=== PATIENT | female | born 1945 | race Caucasian/White ===

== ENCOUNTER 2017-10-03 13:48 | Day surgery (SDC) | payer MEDICARE, OTHER ==
[2017-09-30 13:03] LABS: BASOPHILS # (AUTO) 0.1 X10'3 (0-0.2); BASOPHILS % (AUTO) 0.6 % (0-1); EOSINOPHILS # (AUTO) 0.4 X10'3 (0-0.9); EOSINOPHILS % (AUTO) 3.6 % (0-6); HEMATOCRIT 43.4 % (35.0-45.0); HEMOGLOBIN 14.8 g/dl (12.0-16.0); LYMPHOCYTES # (AUTO) 3.5 X10'3 (1.1-4.8); LYMPHOCYTES % (AUTO) 33.9 % (21-51); MEAN CORPUSCULAR HEMOGLOBIN 30.3 PG (27.0-31.0); MEAN CORPUSCULAR HGB CONC 34.1 % (33.0-36.5); MEAN CORPUSCULAR VOLUME 88.8 FL (78-98); MEAN PLATELET VOLUME 8.3 FL (7.4-10.4); MONOCYTES # (AUTO) 0.8 X10'3 (0-0.9); MONOCYTES % (AUTO) 7.6 % (2-12); NEUTROPHILS # (AUTO) 5.7 X10'3 (1.8-7.7); NEUTROPHILS % (AUTO) 54.3 % (42-75); PLATELET COUNT 226 X10'3 (140-440); RED BLOOD COUNT 4.89 X10'6 (4.20-5.60); RED CELL DISTRIBUTION WIDTH 13.9 % (11.5-14.5); WHITE BLOOD COUNT 10.4 X10'3 (4.5-11.0)
[2017-09-30 13:12] LABS: ALBUMIN 3.7 G/DL (3.4-5.0); ANION GAP 9 (8-16); BLOOD UREA NITROGEN 14 MG/DL (7-18); BUN/CREATININE RATIO 16.7 (6.6-38.0); CALCIUM 9.3 MG/DL (8.5-10.1); CHLORIDE 103 MMOL/L (99-107); CREATININE 0.84 MG/DL (0.40-0.90); GLUCOSE 99 MG/DL (70-104); POTASSIUM 3.8 MMOL/L (3.5-5.1); SODIUM 141 MMOL/L (135-145); TOTAL CARBON DIOXIDE 28.8 MMOL/L (24-32); eGFR 67 ML/MIN
[2017-09-30 13:13] LABS: PARTIAL THROMBOPLASTIN TIME 27 SECONDS (22-32); PROTHROMBIN TIME 10.1 SECONDS (9.0-12.0)
[2017-10-03] VITALS (8 sets, daily range): BP systolic 144–163; BP diastolic 52–64
[~2017-10-03] VITALS: Ht 160 cm; Wt 91.9 kg
[~2017-10-03 13:48] MED LIST: AMLO5TAB4 PO; ASPI81TA52 PO; ATOR40TA71 PO; BUPR100T6 PO; CLOP75TA15 PO; DIPH25CA83 PO; HYDR25TA4 PO; IBUP-24 PO; LOSA100T3 PO; METF500T PO; METO100T14 PO; POTASSIUM PO; PRED20TA PO; RANI150T44 PO
[2017-10-03] MEDS ORDERED: LORazepam 0.5 MG tablet PO PRN (15:05)
[2017-10-03] MEDS ORDERED: diphenhydrAMINE 25mg capsule PO PRN (15:05)
[2017-10-03] MEDS ORDERED: normal saline 1000ml 1,000 ML IV SCH (15:05)
[2017-10-03] MEDS ORDERED: iohexol 350MG/ML 100ml bottle IV ONE (16:30)
[2017-10-03] MEDS ORDERED: LIDOcaine 1% 30ml preserv. free vial ONE (16:31)
[2017-10-03] MEDS ORDERED: midazolam 2 mg/2 ml injection ONE (17:07)
[2017-10-03] MEDS ORDERED: iohexol 350 MG/ML 50ML vial IV ONE (17:26)
[2017-10-03] MEDS ORDERED: OXAZEpam 15mg capsule PO PRN (18:10)
[2017-10-03] MEDS ORDERED: ondansetron/PF 4mg/2ml inj IV PRN (18:10)
[2017-10-03] MEDS ORDERED: proCHLORperazine 10 MG/2 ml inj IV PRN (18:10)
[2017-10-03] MEDS ORDERED: HYDROcodone/acetaminophen 10/325mg tab PO PRN (18:10)
[2017-10-03] MEDS ORDERED: HYDROcodone/acetaminophen 5mg/325mg tablet PO PRN (18:10)
== END 2017-10-03 20:30 | disposition home or self-care (01) ==
LOC: SSTAY O 13:48
PROVIDERS: ATTEND Internal Medicine Interventional Cardiology
DX: I25.10 Atherosclerotic heart disease of native coronary artery without angina pectoris (principal); I10 Essential (primary) hypertension; E78.5 Hyperlipidemia, unspecified; I35.0 Nonrheumatic aortic (valve) stenosis; F17.210 Nicotine dependence, cigarettes, uncomplicated; I70.219 Atherosclerosis of native arteries of extremities with intermittent claudication, unspecified extremity; I65.23 Occlusion and stenosis of bilateral carotid arteries; E11.59 Type 2 diabetes mellitus with other circulatory complications; K21.9 Gastro-esophageal reflux disease without esophagitis; J44.9 Chronic obstructive pulmonary disease, unspecified; F32.9 Major depressive disorder, single episode, unspecified; F41.8 Other specified anxiety disorders; Z90.49 Acquired absence of other specified parts of digestive tract; Z95.5 Presence of coronary angioplasty implant and graft; Z98.51 Tubal ligation status; Z79.01 Long term (current) use of anticoagulants; Z88.3 Allergy status to other anti-infective agents; Z91.041 Radiographic dye allergy status; Z88.1 Allergy status to other antibiotic agents; Z86.79 Personal history of other diseases of the circulatory system; Z79.82 Long term (current) use of aspirin; Z79.84 Long term (current) use of oral hypoglycemic drugs; Z98.890 Other specified postprocedural states; Z79.899 Other long term (current) drug therapy; Z88.8 Allergy status to other drugs, medicaments and biological substances
CPT/HCPCS: 36415; 80048; 82948; 85025; 85610; 85730; 93005; 93458; 93567; 99152; 99153; A6257; C1769; J1644; J2250; J3490; J7030; Q0163; Q9967; A4620

== ENCOUNTER 2017-10-08 18:44 | Inpatient (IN) | payer MEDICARE, OTHER ==
[~2017-10-08] VITALS: Ht 157.5 cm; Wt 102.3 kg
[~2017-10-08 18:44] MED LIST changes: -ATOR40TA71 PO; -IBUP-24 PO; -POTASSIUM PO
[2017-10-08 19:08] LABS: BASOPHILS # (AUTO) 0.2 X10'3 (0-0.2); BASOPHILS % (AUTO) 0.9 % (0-1); EOSINOPHILS # (AUTO) 0.4 X10'3 (0-0.9); EOSINOPHILS % (AUTO) 2.1 % (0-6); HEMATOCRIT 44.8 % (35.0-45.0); HEMOGLOBIN 15.3 g/dl (12.0-16.0); LYMPHOCYTES # (AUTO) 4.2 X10'3 (1.1-4.8); MEAN CORPUSCULAR HEMOGLOBIN 30.2 PG (27.0-31.0); MEAN CORPUSCULAR HGB CONC 34.2 % (33.0-36.5); MEAN CORPUSCULAR VOLUME 88.1 FL (78-98); MEAN PLATELET VOLUME 8.2 FL (7.4-10.4); NEUTROPHILS # (AUTO) 11.1 X10'3 (1.8-7.7); PLATELET COUNT 254 X10'3 (140-440); RED BLOOD COUNT 5.09 X10'6 (4.20-5.60); RED CELL DISTRIBUTION WIDTH 13.8 % (11.5-14.5); WHITE BLOOD COUNT 16.8 X10'3 (4.5-11.0)
[2017-10-08 19:18] LABS: INR 0.9 INR; PARTIAL THROMBOPLASTIN TIME 28 SECONDS (22-32); PROTHROMBIN TIME 9.8 SECONDS (9.0-12.0)
[2017-10-08 19:23] LABS: ALANINE AMINOTRANSFERASE 66 U/L (12-78); ALBUMIN 3.9 G/DL (3.4-5.0); ALBUMIN/GLOBULIN RATIO 1.1 (1.1-1.5); ALKALINE PHOSPHATASE 86 IU/L (46-116); ANION GAP 11 (8-16); ASPARTATE AMINO TRANSFERASE 22 U/L (10-37); BILIRUBIN,TOTAL 0.8 MG/DL (0.1-1.0); BLOOD UREA NITROGEN 17 MG/DL (7-18); CALCIUM 9.6 MG/DL (8.5-10.1); CHLORIDE 98 MMOL/L (99-107); GLUCOSE 194 MG/DL (70-104); POTASSIUM 3.7 MMOL/L (3.5-5.1); SODIUM 137 MMOL/L (135-145); TOTAL PROTEIN 7.6 G/DL (6.4-8.2); eGFR 55 ML/MIN
[2017-10-08] MEDS ORDERED: heparin 10,000 units/1 ML INJ IV ONE (19:40)
[2017-10-08] MEDS ORDERED: heparin 10,000 units/1 ML INJ IV PRN (19:40)
[2017-10-08] MEDS ORDERED: aspirin 81mg tab.chew PO ONE (19:40)
[2017-10-08] MEDS: heparin 25,000 UNIT/250ml bag 250 ML IV SCH (19:56)
[2017-10-08] MEDS ORDERED: morphine 4 MG/ML inj SYRINge IV ONE (20:00)
[2017-10-08] MEDS ORDERED: ondansetron/PF 4mg/2ml inj IV ONE (20:00)
[2017-10-08] MEDS: metoprolol tartrate 1mg/ml inj IV SCH ×14 (20:40→23:45)
[2017-10-08] MEDS ORDERED: ondansetron/PF 4mg/2ml inj IV PRN (20:50)
[2017-10-08] MEDS ORDERED: magnesium hydroxide 30ml (MOM) UD suspension PO PRN (20:50)
[2017-10-08] MEDS ORDERED: morphine 2 MG/ML inj. syringe IV PRN ×2 (20:50)
[2017-10-08] MEDS ORDERED: acetaminophen 325mg tablet PO PRN (20:50)
[2017-10-08] MEDS ORDERED: mag hydrox/Alum hydrox/simeth 30ml oral suspension PO PRN (20:50)
[2017-10-08] MEDS ORDERED: dextrose ORAL solution 15 GM/59 ML bottle PO PRN ×2 (20:55)
[2017-10-08] MEDS ORDERED: MESSAGE TO PHARMACY PO ONE (20:55)
[2017-10-08] MEDS ORDERED: metoprolol tartrate 1mg/ml inj IV PRN (20:55)
[2017-10-08] MEDS ORDERED: insulin Lispro (HumaLOG) vial - multi-dose SQ SCH (20:55)
[2017-10-08] MEDS ORDERED: dextrose 50%-water 50ml dispensing syringe IV PRN ×2 (20:55)
[2017-10-08] MEDS ORDERED: glucagon, human recombinant 1mg kit SUBCUT PRN (20:55)
[2017-10-08] MEDS: insulin glargine (Lantus) pen - multi-dose SQ SCH (21:00)
[2017-10-08 22:00] VITALS: BP 119/74
[2017-10-08 22:29] LABS: HEMOGLOBIN A1C 7.5 % (4.5-6.2)
[2017-10-09] MEDS ORDERED: albuterol 2.5 MG/3 ML nebule ONE
[2017-10-09] MEDS: metoprolol tartrate 1mg/ml inj IV SCH ×25 (00:15→06:00)
[2017-10-09 03:00] VITALS: BP 106/43
[2017-10-09 03:15] LABS: BASOPHILS % (AUTO) 0.4 % (0-1); EOSINOPHILS # (AUTO) 0.3 X10'3 (0-0.9); HEMATOCRIT 40.4 % (35.0-45.0); LYMPHOCYTES # (AUTO) 3.8 X10'3 (1.1-4.8); LYMPHOCYTES % (AUTO) 30.3 % (21-51); MEAN CORPUSCULAR HEMOGLOBIN 30.7 PG (27.0-31.0); MEAN CORPUSCULAR HGB CONC 34.6 % (33.0-36.5); MEAN CORPUSCULAR VOLUME 88.8 FL (78-98); MEAN PLATELET VOLUME 8.6 FL (7.4-10.4); MONOCYTES # (AUTO) 1.2 X10'3 (0-0.9); MONOCYTES % (AUTO) 9.6 % (2-12); NEUTROPHILS # (AUTO) 7.2 X10'3 (1.8-7.7); NEUTROPHILS % (AUTO) 57.7 % (42-75); PLATELET COUNT 211 X10'3 (140-440); RED BLOOD COUNT 4.56 X10'6 (4.20-5.60); RED CELL DISTRIBUTION WIDTH 14.1 % (11.5-14.5); WHITE BLOOD COUNT 12.5 X10'3 (4.5-11.0)
[2017-10-09 03:31] LABS: ALANINE AMINOTRANSFERASE 62 U/L (12-78); ALBUMIN 3.1 G/DL (3.4-5.0); ALKALINE PHOSPHATASE 67 IU/L (46-116); ANION GAP 5 (8-16); ASPARTATE AMINO TRANSFERASE 12 U/L (10-37); BILIRUBIN,TOTAL 0.5 MG/DL (0.1-1.0); BLOOD UREA NITROGEN 20 MG/DL (7-18); BUN/CREATININE RATIO 22.2 (6.6-38.0); CALCIUM 8.7 MG/DL (8.5-10.1); CHLORIDE 103 MMOL/L (99-107); GLUCOSE 182 MG/DL (70-104); POTASSIUM 3.3 MMOL/L (3.5-5.1); SODIUM 138 MMOL/L (135-145); TOTAL CARBON DIOXIDE 29.6 MMOL/L (24-32); TOTAL PROTEIN 6.2 G/DL (6.4-8.2); eGFR 62 ML/MIN
[2017-10-09] MEDS: heparin 25,000 UNIT/250ml bag 250 ML IV SCH ×3 (03:57→22:53)
[2017-10-09] MEDS ORDERED: potassium Cl 20 mEq SR tablet PO PRN ×2 (06:35)
[2017-10-09] MEDS ORDERED: magnesium 1gm/100ml D5W IVPB 100 ML IV PRN (06:35)
[2017-10-09] MEDS ORDERED: potassium Cl 40MEQ/NS 500ml 500 ML IV PRN ×2 (06:35)
[2017-10-09] MEDS ORDERED: magnesium 4gm in 100ml NS 100 ML IV PRN (06:35)
[2017-10-09] MEDS ORDERED: magnesium Cl slow-release 64mg tablet PO PRN (06:35)
[2017-10-09] MEDS ORDERED: morphine 4 MG/ML inj SYRINge IV PRN ×2 (06:48→06:49)
[2017-10-09 07:00] VITALS: BP 126/53
[2017-10-09] MEDS: buPROPion SR 100mg tab PO SCH ×2 (07:44→20:34)
[2017-10-09] MEDS: metoprolol tartrate 50mg tablet PO SCH ×2 (07:45→20:34)
[2017-10-09 07:46] LABS: MAGNESIUM 1.8 MG/DL (1.5-2.4)
[2017-10-09] MEDS ORDERED: losartan 50mg tablet PO SCH (08:00)
[2017-10-09] MEDS ORDERED: amLODIPine 5mg tablet PO SCH (08:00)
[2017-10-09] MEDS ORDERED: famotidine 20mg tablet PO SCH (08:00)
[2017-10-09] MEDS: diphenhydrAMINE 25mg capsule PO SCH ×2 (08:00→20:34)
[2017-10-09] MEDS ORDERED: aspirin 81mg tablet.DR PO SCH (08:00)
[2017-10-09 11:00] VITALS: BP 146/62
[2017-10-09] MEDS ORDERED: dextrose 50%-water 50ml dispensing syringe IV PRN (13:20)
[2017-10-09] MEDS ORDERED: MESSAGE TO NURSING PO ONE ×4 (13:20)
[2017-10-09 14:02] LABS: PARTIAL THROMBOPLASTIN TIME 49 SECONDS (22-32); PROTHROMBIN TIME 10.3 SECONDS (9.0-12.0)
[2017-10-09 14:06] LABS: ALANINE AMINOTRANSFERASE 57 U/L (12-78); ALBUMIN 3.2 G/DL (3.4-5.0); ALKALINE PHOSPHATASE 64 IU/L (46-116); ANION GAP 5 (8-16); ASPARTATE AMINO TRANSFERASE 23 U/L (10-37); BILIRUBIN,TOTAL 0.8 MG/DL (0.1-1.0); BLOOD UREA NITROGEN 16 MG/DL (7-18); BUN/CREATININE RATIO 19.3 (6.6-38.0); CALCIUM 9.2 MG/DL (8.5-10.1); CHLORIDE 101 MMOL/L (99-107); CREATININE 0.83 MG/DL (0.40-0.90); GLUCOSE 192 MG/DL (70-104); POTASSIUM 4.5 MMOL/L (3.5-5.1); SODIUM 137 MMOL/L (135-145); TOTAL CARBON DIOXIDE 30.6 MMOL/L (24-32); TOTAL PROTEIN 6.5 G/DL (6.4-8.2); eGFR 68 ML/MIN
[2017-10-09 15:00] VITALS: BP 127/48
[2017-10-09 16:51] LABS: ABG BASE EXCESS 0.7 mmol/L (-2.0-3.0); ABG HCO3 25.1 mmol/L (22.0-26.0); ABG OXYGEN SATURATION 95.1 % (95-98); ABG PCO2 (T) 39.4 mmHg (32.0-45.0); ABG PH (T) 7.422 (7.350-7.450); ABG PO2 (T) 76.4 mmHg (83-108); ALLEN'S TEST Positive; FCOHb 1.8 % (0.5-1.5); FO2Hb 93.4 % (94-100); TOTAL HEMOGLOBIN 14.4 G/dl (12.0-16.0)
[2017-10-09] MEDS ORDERED: insulin Lispro (HumaLOG) vial - multi-dose SQ SCH (18:00)
[2017-10-09 19:00] VITALS: BP 149/55
[2017-10-09] MEDS ORDERED: ringers solution, lacted 1,000 ML IV ONE (20:18)
[2017-10-09] MEDS: insulin glargine (Lantus) pen - multi-dose SQ SCH (21:00)
[2017-10-09 23:00] VITALS: BP 149/55
[2017-10-10] VITALS (14 sets, daily range): BP systolic 83–172; BP diastolic 48–69
[2017-10-10] MEDS: insulin regular, human inj. 100 UNITS in normal saline 100ml IV soln 100 ML IV SCH ×12 (05:30→23:15)
[2017-10-10] MEDS ORDERED: vancomycin/NS 1 GM ADD-VANTAGE 250 ML IV ONE (05:30)
[2017-10-10] MEDS ORDERED: cefazolin/dext.iso 2gm/50ml 50 ML IV ONE (05:30)
[2017-10-10] MEDS ORDERED: mupirocin 2% ointment 22GM NS SCH (05:30)
[2017-10-10 05:49] LABS: PRE OP PROTIME 10.3 SECONDS (9.0-12.0)
[2017-10-10] MEDS ORDERED: LORazepam 2 mg/ml vial IV ONE (06:00)
[2017-10-10] MEDS ORDERED: famotidine 20mg tablet PO ONE (06:00)
[2017-10-10 06:05] LABS: ALANINE AMINOTRANSFERASE 53 U/L (12-78); ALBUMIN 3.1 G/DL (3.4-5.0); ALKALINE PHOSPHATASE 59 IU/L (46-116); ANION GAP 5 (8-16); ASPARTATE AMINO TRANSFERASE 25 U/L (10-37); BILIRUBIN,TOTAL 0.6 MG/DL (0.1-1.0); BLOOD UREA NITROGEN 16 MG/DL (7-18); BUN/CREATININE RATIO 18.8 (6.6-38.0); CALCIUM 9.3 MG/DL (8.5-10.1); CHLORIDE 105 MMOL/L (99-107); CREATININE 0.85 MG/DL (0.40-0.90); GLUCOSE 174 MG/DL (70-104); MAGNESIUM 1.7 MG/DL (1.5-2.4); POTASSIUM 3.8 MMOL/L (3.5-5.1); SODIUM 137 MMOL/L (135-145); TOTAL PROTEIN 6.2 G/DL (6.4-8.2); eGFR 66 ML/MIN
[2017-10-10 06:07] LABS: BASOPHILS # (AUTO) 0.1 X10'3 (0-0.2); BASOPHILS % (AUTO) 0.5 % (0-1); EOSINOPHILS # (AUTO) 0.2 X10'3 (0-0.9); EOSINOPHILS % (AUTO) 2.4 % (0-6); HEMATOCRIT 38.8 % (35.0-45.0); HEMOGLOBIN 13.4 g/dl (12.0-16.0); LYMPHOCYTES # (AUTO) 2.5 X10'3 (1.1-4.8); LYMPHOCYTES % (AUTO) 26.6 % (21-51); MEAN CORPUSCULAR HEMOGLOBIN 30.7 PG (27.0-31.0); MEAN CORPUSCULAR HGB CONC 34.7 % (33.0-36.5); MEAN CORPUSCULAR VOLUME 88.4 FL (78-98); MEAN PLATELET VOLUME 9.3 FL (7.4-10.4); MONOCYTES % (AUTO) 10.3 % (2-12); NEUTROPHILS # (AUTO) 5.7 X10'3 (1.8-7.7); NEUTROPHILS % (AUTO) 60.2 % (42-75); PLATELET COUNT 193 X10'3 (140-440); RED BLOOD COUNT 4.38 X10'6 (4.20-5.60); RED CELL DISTRIBUTION WIDTH 13.8 % (11.5-14.5); WHITE BLOOD COUNT 9.5 X10'3 (4.5-11.0)
[2017-10-10] MEDS ORDERED: SUFENTANIL CITRATE 50 MCG/ML 2ml ampule IV ONE (07:22)
[2017-10-10] MEDS ORDERED: MIDAZolam 1mg/ml 10ml vial ONE (07:22)
[2017-10-10] MEDS ORDERED: LIDOcaine 2% (20mg/ml) 5ml vial ONE (07:23)
[2017-10-10] MEDS ORDERED: rocuronium 10mg/ml inj IV ONE ×2 (07:23)
[2017-10-10] MEDS ORDERED: etomidate 2mg/ml inj. ONE (07:23)
[2017-10-10] MEDS ORDERED: aminocaproic acid 250 MG/1 ML inj. ONE ×2 (07:25→09:00)
[2017-10-10] MEDS ORDERED: nitroGLYCERIN in D5W 50mg/250ml (Tridil) infusion IV ONE (07:25)
[2017-10-10] MEDS ORDERED: INSULIN R 100 UNIT in NS 100ML (1 UNIT/1 ML) BAG IV ONE (07:25)
[2017-10-10] MEDS ORDERED: DOPamine/D5W 400mg/250ml bag IV ONE (07:25)
[2017-10-10] MEDS ORDERED: isoflurane 100ml inhalation liquid IH ONE (07:25)
[2017-10-10] MEDS ORDERED: ceFAZolin 1000mg inj ONE ×2 (07:25→11:03)
[2017-10-10] MEDS ORDERED: heparin 10,000 units/1 ML INJ IR ONE (07:30)
[2017-10-10] MEDS ORDERED: papaverine 30 mg/ml 2ml inj. IA ONE (07:30)
[2017-10-10] MEDS: buPROPion SR 100mg tab PO SCH ×2 (08:00→19:44)
[2017-10-10 08:40] LABS: ABG BASE EXCESS -0.7 mmol/L (-2.0-3.0); ABG HCO3 21.9 mmol/L (22.0-26.0); ABG OXYGEN SATURATION 99.5 % (95-98); ABG PCO2 31.1 mmHg (35.0-45.0); ABG PH 7.466 (7.350-7.450); ABG PO2 462.7 mmHg (60.0-100.0); CL (ABG) 106 mmol/L (99-107); FCOHb 1.1 % (0.5-1.5); FMetHb 0.4 % (0.3-1.12); GLUCOSE (ABG) 169 mg/dl (70-105); IONIZED CA (ABG) 1.12 mmol/L (1.03-1.32); K (ABG) 3.6 mmol/L (3.3-5.1); NA (ABG) 131 mmol/L (135-145); TOTAL HEMOGLOBIN 15.7 G/dl (12.0-16.0)
[2017-10-10] MEDS ORDERED: sodium bicarbonate (8.4%) 1 mEq/ml syringe ONE (09:00)
[2017-10-10] MEDS ORDERED: methylPREDNISolone sod succ 1000mg vial ONE (09:00)
[2017-10-10] MEDS ORDERED: magnesium sulf 1 GM/2 ML ONE (09:00)
[2017-10-10] MEDS ORDERED: albumin (human) 25% 100 ML IV solution IV ONE (09:00)
[2017-10-10] MEDS ORDERED: heparin 1,000 units/ml 10ml inj ONE (09:00)
[2017-10-10] MEDS ORDERED: potassium Cl 2 mEq/ml inj IV ONE (09:00)
[2017-10-10] MEDS ORDERED: calcium chloride 100 MG/1 ML inj IV ONE (09:00)
[2017-10-10] MEDS ORDERED: phenylephrine 10mg/ml inj. ONE ×2 (09:00→10:42)
[2017-10-10] MEDS ORDERED: LIDOcaine 2% (20 mg/ml) 5ml cardiac syringe ONE (09:00)
[2017-10-10] MEDS ORDERED: heparin 10,000 units/1 ML INJ ONE ×2 (09:00→14:00)
[2017-10-10] MEDS ORDERED: ipratropium/albuterol 3ml nebule IH PRN (09:35)
[2017-10-10 09:36] LABS: ABG BASE EXCESS VENOUS 1.7 mmol/L; ABG HCO3 VENOUS 26.2 mmol/L; ABG PO2 VENOUS 52.1 mmHg; CL (ABG) 104 mmol/L (99-107); FCOHb VENOUS 0.9 %; FHHb VENOUS 12.5 %; FMetHb VENOUS 0.2 %; FO2Hb VENOUS 86.4 %; GLUCOSE (ABG) 129 mg/dl (70-105); K (ABG) 4.3 mmol/L (3.3-5.1); NA (ABG) 134 mmol/L (135-145); TOTAL HEMOGLOBIN 8.8 G/dl (12.0-16.0)
[2017-10-10] MEDS ORDERED: MESSAGE TO NURSING PO ONE (10:00)
[2017-10-10 10:10] LABS: ABG BASE EXCESS 0.8 mmol/L (-2.0-3.0); ABG HCO3 24.8 mmol/L (22.0-26.0); ABG OXYGEN SATURATION 99.4 % (95-98); ABG PCO2 36.9 mmHg (35.0-45.0); ABG PH 7.445 (7.350-7.450); ABG PO2 406.3 mmHg (60.0-100.0); CL (ABG) 106 mmol/L (99-107); FCOHb 0.6 % (0.5-1.5); FO2Hb 98.8 % (94-100); GLUCOSE (ABG) 127 mg/dl (70-105); IONIZED CA (ABG) 1.04 mmol/L (1.03-1.32); K (ABG) 4.4 mmol/L (3.3-5.1); NA (ABG) 132 mmol/L (135-145); TOTAL HEMOGLOBIN 9.5 G/dl (12.0-16.0)
[2017-10-10 10:36] LABS: ABG BASE EXCESS 0.4 mmol/L (-2.0-3.0); ABG HCO3 24.4 mmol/L (22.0-26.0); ABG PCO2 36.2 mmHg (35.0-45.0); ABG PH 7.446 (7.350-7.450); ABG PO2 331.9 mmHg (60.0-100.0); CL (ABG) 107 mmol/L (99-107); FCOHb 0.4 % (0.5-1.5); FMetHb 0.5 % (0.3-1.12); FO2Hb 98.1 % (94-100); GLUCOSE (ABG) 125 mg/dl (70-105); IONIZED CA (ABG) 1.02 mmol/L (1.03-1.32); K (ABG) 4.2 mmol/L (3.3-5.1); NA (ABG) 135 mmol/L (135-145); TOTAL HEMOGLOBIN 8.9 G/dl (12.0-16.0)
[2017-10-10] MEDS ORDERED: epiNEPHrine 1 mg/ml inj ONE (10:43)
[2017-10-10 11:20] LABS: ABG BASE EXCESS 1.6 mmol/L (-2.0-3.0); ABG HCO3 24.7 mmol/L (22.0-26.0); ABG OXYGEN SATURATION 99.2 % (95-98); ABG PCO2 31.9 mmHg (35.0-45.0); ABG PH 7.506 (7.350-7.450); ABG PO2 349.1 mmHg (60.0-100.0); CL (ABG) 105 mmol/L (99-107); FCOHb 0.9 % (0.5-1.5); FMetHb 0.6 % (0.3-1.12); FO2Hb 97.7 % (94-100); GLUCOSE (ABG) 123 mg/dl (70-105); IONIZED CA (ABG) 1.32 mmol/L (1.03-1.32); K (ABG) 4.5 mmol/L (3.3-5.1); NA (ABG) 133 mmol/L (135-145); TOTAL HEMOGLOBIN 7.7 G/dl (12.0-16.0)
[2017-10-10 12:01] LABS: ABG PCO2 VENOUS 43.4 mmHg; ABG PO2 VENOUS 43.1 mmHg; CL (ABG) 108 mmol/L (99-107); FCOHb VENOUS 0.8 %; FHHb VENOUS 22.7 %; FMetHb VENOUS 0.8 %; FO2Hb VENOUS 75.7 %; GLUCOSE (ABG) 137 mg/dl (70-105); K (ABG) 4.3 mmol/L (3.3-5.1); NA (ABG) 137 mmol/L (135-145); TOTAL HEMOGLOBIN 8.4 G/dl (12.0-16.0)
[2017-10-10] MEDS ORDERED: albumin (Human) 5% 250ml 250 ML IV ONE (12:38)
[2017-10-10] MEDS: amiodarone/D5 360MG/200ML BAG 200 ML IV SCH ×2 (12:50→23:54)
[2017-10-10] MEDS ORDERED: sodium phosphate inj. 30 MMOL in dextrose 5%-water 250 ML IV PRN (12:50)
[2017-10-10] MEDS ORDERED: normal saline 250ml IV soln 250 ML IV PRN (12:50)
[2017-10-10] MEDS ORDERED: sodium phosphate inj. 15 MMOL in dextrose 5%-water 150 ML IV PRN (12:50)
[2017-10-10] MEDS ORDERED: magnesium 4gm in 100ml NS 100 ML IV PRN (12:50)
[2017-10-10] MEDS ORDERED: dextrose 50%-water 50ml dispensing syringe IV PRN (12:50)
[2017-10-10] MEDS ORDERED: Neutra Phos packet PO PRN (12:50)
[2017-10-10] MEDS ORDERED: insulin regular, human inj. 100 UNITS in normal saline 100ml IV soln 100 ML IV SCH ×2 (12:50)
[2017-10-10] MEDS ORDERED: ondansetron/PF 4mg/2ml inj IV PRN (12:50)
[2017-10-10] MEDS ORDERED: DOPamine 400mg/D5W 250ml 250 ML IV PRN (12:50)
[2017-10-10] MEDS ORDERED: potassium Cl 20mEq/100mL bag 100 ML IV PRN ×2 (12:50)
[2017-10-10] MEDS ORDERED: morphine 4 MG/ML inj SYRINge IV PRN (12:50)
[2017-10-10] MEDS ORDERED: niCARDipine/sod cl 20mg/200ml 200 ML IV PRN (12:50)
[2017-10-10] MEDS ORDERED: magnesium hydroxide 30ml (MOM) UD suspension PO PRN (12:50)
[2017-10-10] MEDS ORDERED: nitroGLYCERIN-Tridil 50MG/D5W 250 ML IV PRN (12:50)
[2017-10-10] MEDS ORDERED: acetaminophen 325mg tablet PO PRN (12:50)
[2017-10-10] MEDS ORDERED: HYDROcodone/acetaminophen 10/325mg tab PO PRN (12:50)
[2017-10-10] MEDS: insulin Lispro (HumaLOG) vial - multi-dose SQ SCH ×4 (13:00→23:16)
[2017-10-10] MEDS ORDERED: papaverine 30 mg/ml 2ml inj. ONE (14:00)
[2017-10-10 14:06] LABS: ABG BASE EXCESS -3.9 mmol/L (-2.0-3.0); ABG HCO3 20.3 mmol/L (22.0-26.0); ABG OXYGEN SATURATION 98.6 % (95-98); ABG PCO2 (T) 32.7 mmHg (32.0-45.0); ABG PH (T) 7.407 (7.350-7.450); FCOHb 0.3 % (0.5-1.5); FMetHb 0.3 % (0.3-1.12); MINUTE VOLUME 8 L/min; PEEP 5 cm H2O; RESPIRATORY RATE 12 b/min; RESPIRATORY RATE (OBSERVED) 12 b/min; TIDAL VOLUME 600 mL; TOTAL HEMOGLOBIN 12.3 G/dl (12.0-16.0)
[2017-10-10 14:15] LABS: BASOPHILS % (AUTO) 0.1 % (0-1); EOSINOPHILS # (AUTO) 0.3 X10'3 (0-0.9); EOSINOPHILS % (AUTO) 1.9 % (0-6); HEMATOCRIT 33.6 % (35.0-45.0); HEMOGLOBIN 11.3 g/dl (12.0-16.0); LYMPHOCYTES # (AUTO) 1.5 X10'3 (1.1-4.8); LYMPHOCYTES % (AUTO) 8.9 % (21-51); MEAN CORPUSCULAR HEMOGLOBIN 30.5 PG (27.0-31.0); MEAN CORPUSCULAR HGB CONC 33.7 % (33.0-36.5); MEAN CORPUSCULAR VOLUME 90.4 FL (78-98); MEAN PLATELET VOLUME 8.5 FL (7.4-10.4); MONOCYTES # (AUTO) 0.6 X10'3 (0-0.9); MONOCYTES % (AUTO) 3.7 % (2-12); NEUTROPHILS # (AUTO) 14.3 X10'3 (1.8-7.7); NEUTROPHILS % (AUTO) 85.4 % (42-75); PLATELET COUNT 127 X10'3 (140-440); RED BLOOD COUNT 3.72 X10'6 (4.20-5.60); RED CELL DISTRIBUTION WIDTH 13.8 % (11.5-14.5); WHITE BLOOD COUNT 16.8 X10'3 (4.5-11.0)
[2017-10-10] MEDS: albumin (Human) 5% 250ml 250 ML IV PRN ×2 (14:21→15:31)
[2017-10-10 14:27] LABS: INR 1.2 INR; PARTIAL THROMBOPLASTIN TIME 34 SECONDS (22-32)
[2017-10-10 14:30] LABS: ALANINE AMINOTRANSFERASE 43 U/L (12-78); ALBUMIN 2.8 G/DL (3.4-5.0); ALBUMIN/GLOBULIN RATIO 1.5 (1.1-1.5); ALKALINE PHOSPHATASE 30 IU/L (46-116); ANION GAP 10 (8-16); ASPARTATE AMINO TRANSFERASE 46 U/L (10-37); BILIRUBIN,TOTAL 0.8 MG/DL (0.1-1.0); BLOOD UREA NITROGEN 13 MG/DL (7-18); BUN/CREATININE RATIO 12.9 (6.6-38.0); CALCIUM 8.3 MG/DL (8.5-10.1); CHLORIDE 111 MMOL/L (99-107); CREATININE 1.01 MG/DL (0.40-0.90); GLUCOSE 131 MG/DL (70-104); MAGNESIUM 2.7 MG/DL (1.5-2.4); PHOSPHORUS 1.4 MG/DL (2.3-4.5); SODIUM 146 MMOL/L (135-145); TOTAL CARBON DIOXIDE 24.6 MMOL/L (24-32); TOTAL PROTEIN 4.7 G/DL (6.4-8.2); eGFR 54 ML/MIN
[2017-10-10 14:31] LABS: POTASSIUM 3.5 MMOL/L (3.5-5.1)
[2017-10-10] MEDS: morphine 4 MG/ML inj SYRINge IV PRN (15:30)
[2017-10-10] MEDS: sodium chloride 0.45% 1,000 ML IV SCH (15:33)
[2017-10-10] MEDS: ceFAZolin 1GM/D5W- ADD-VANTAGE 50 ML IV SCH (15:41)
[2017-10-10] MEDS: potassium Cl 20mEq/100mL bag 100 ML IV PRN (15:42)
[2017-10-10] MEDS ORDERED: morphine 2 MG/ML inj. syringe ONE ×2 (16:12→16:49)
[2017-10-10] MEDS ORDERED: propofol 1000mg/100ml bottle 100 ML IV ONE (16:18)
[2017-10-10] MEDS ORDERED: propofol 1000mg/100ml bottle 100 ML IV PRN (18:57)
[2017-10-10 19:16] LABS: BASOPHILS % (AUTO) 0 % (0-1); EOSINOPHILS # (AUTO) 0.1 X10'3 (0-0.9); EOSINOPHILS % (AUTO) 1.1 % (0-6); HEMATOCRIT 29.7 % (35.0-45.0); HEMOGLOBIN 10.2 g/dl (12.0-16.0); LYMPHOCYTES # (AUTO) 0.8 X10'3 (1.1-4.8); LYMPHOCYTES % (AUTO) 6.3 % (21-51); MEAN CORPUSCULAR HEMOGLOBIN 30.8 PG (27.0-31.0); MEAN CORPUSCULAR HGB CONC 34.4 % (33.0-36.5); MEAN CORPUSCULAR VOLUME 89.5 FL (78-98); MONOCYTES # (AUTO) 0.6 X10'3 (0-0.9); MONOCYTES % (AUTO) 4.5 % (2-12); NEUTROPHILS # (AUTO) 11.3 X10'3 (1.8-7.7); NEUTROPHILS % (AUTO) 88.1 % (42-75); PLATELET COUNT 94 X10'3 (140-440); RED BLOOD COUNT 3.32 X10'6 (4.20-5.60); RED CELL DISTRIBUTION WIDTH 14.4 % (11.5-14.5); WHITE BLOOD COUNT 12.9 X10'3 (4.5-11.0)
[2017-10-10 19:31] LABS: ALBUMIN 3.2 G/DL (3.4-5.0); ANION GAP 8 (8-16); BLOOD UREA NITROGEN 14 MG/DL (7-18); BUN/CREATININE RATIO 16.9 (6.6-38.0); CALCIUM 7.8 MG/DL (8.5-10.1); CHLORIDE 110 MMOL/L (99-107); CREATININE 0.83 MG/DL (0.40-0.90); GLUCOSE 258 MG/DL (70-104); SODIUM 143 MMOL/L (135-145); TOTAL CARBON DIOXIDE 25.1 MMOL/L (24-32); TRIGLYCERIDES 137 MG/DL (20-135); eGFR 68 ML/MIN
[2017-10-10] MEDS: mupirocin 2% nasal ointment 1gm UD NS SCH (19:44)
[2017-10-10] MEDS: vancomycin/NS 1 GM ADD-VANTAGE 250 ML IV SCH (19:45)
[2017-10-10] MEDS: docusate sod 100mg capsule PO SCH (19:45)
[2017-10-11] VITALS (22 sets, daily range): BP systolic 78–142; BP diastolic 34–60
[2017-10-11] MEDS: insulin regular, human inj. 100 UNITS in normal saline 100ml IV soln 100 ML IV SCH ×20 (00:08→23:19)
[2017-10-11] MEDS: amiodarone/D5 360MG/200ML BAG 200 ML IV SCH (00:58)
[2017-10-11] MEDS: ceFAZolin 1GM/D5W- ADD-VANTAGE 50 ML IV SCH ×3 (01:11→16:37)
[2017-10-11 02:34] LABS: BASOPHILS % (AUTO) 0.1 % (0-1); EOSINOPHILS # (AUTO) 0.2 X10'3 (0-0.9); EOSINOPHILS % (AUTO) 1.2 % (0-6); HEMOGLOBIN 9.6 g/dl (12.0-16.0); LYMPHOCYTES # (AUTO) 1.4 X10'3 (1.1-4.8); LYMPHOCYTES % (AUTO) 9.8 % (21-51); MEAN CORPUSCULAR HEMOGLOBIN 30.8 PG (27.0-31.0); MEAN CORPUSCULAR HGB CONC 34.1 % (33.0-36.5); MEAN CORPUSCULAR VOLUME 90.4 FL (78-98); MEAN PLATELET VOLUME 9.2 FL (7.4-10.4); MONOCYTES # (AUTO) 0.6 X10'3 (0-0.9); MONOCYTES % (AUTO) 4.2 % (2-12); NEUTROPHILS # (AUTO) 11.7 X10'3 (1.8-7.7); NEUTROPHILS % (AUTO) 84.7 % (42-75); PLATELET COUNT 89 X10'3 (140-440); RED CELL DISTRIBUTION WIDTH 14.3 % (11.5-14.5); WHITE BLOOD COUNT 13.9 X10'3 (4.5-11.0)
[2017-10-11 02:49] LABS: ALANINE AMINOTRANSFERASE 33 U/L (12-78); ALBUMIN 2.8 G/DL (3.4-5.0); ALBUMIN/GLOBULIN RATIO 1.6 (1.1-1.5); ALKALINE PHOSPHATASE 23 IU/L (46-116); ANION GAP 12 (8-16); ASPARTATE AMINO TRANSFERASE 47 U/L (10-37); BILIRUBIN,TOTAL 0.3 MG/DL (0.1-1.0); BLOOD UREA NITROGEN 13 MG/DL (7-18); BUN/CREATININE RATIO 13.7 (6.6-38.0); CALCIUM 7.3 MG/DL (8.5-10.1); CHLORIDE 111 MMOL/L (99-107); CREATININE 0.95 MG/DL (0.40-0.90); GLUCOSE 193 MG/DL (70-104); MAGNESIUM 1.7 MG/DL (1.5-2.4); PHOSPHORUS 3.5 MG/DL (2.3-4.5); POTASSIUM 3.3 MMOL/L (3.5-5.1); SODIUM 145 MMOL/L (135-145); TOTAL CARBON DIOXIDE 21.7 MMOL/L (24-32); TOTAL PROTEIN 4.6 G/DL (6.4-8.2); eGFR 58 ML/MIN
[2017-10-11] MEDS: potassium Cl 20mEq/100mL bag 100 ML IV PRN ×4 (03:05→06:13)
[2017-10-11 03:11] LABS: INR 1.1 INR; PARTIAL THROMBOPLASTIN TIME 33 SECONDS (22-32); PROTHROMBIN TIME 11.4 SECONDS (9.0-12.0)
[2017-10-11 03:26] LABS: ABG BASE EXCESS -7.5 mmol/L (-2.0-3.0); ABG HCO3 16.5 mmol/L (22.0-26.0); ABG OXYGEN SATURATION 92.6 % (95-98); ABG PCO2 (T) 28.6 mmHg (32.0-45.0); ABG PH (T) 7.379 (7.350-7.450); ABG PO2 (T) 72.2 mmHg (83-108); FCOHb 0.3 % (0.5-1.5); FMetHb 0.3 % (0.3-1.12); MINUTE VOLUME 8 L/min; PATIENT TEMPERATURE 36.9; PEEP 5 cm H2O; RESPIRATORY RATE 12 b/min; RESPIRATORY RATE (OBSERVED) 15 b/min; TIDAL VOLUME 600 mL; TOTAL HEMOGLOBIN 10.3 G/dl (12.0-16.0)
[2017-10-11] MEDS: morphine 4 MG/ML inj SYRINge IV PRN ×7 (04:18→22:43)
[2017-10-11 05:11] LABS: ACTIVATED CLOTTING TIME 115 SEC (101-148)
[2017-10-11 05:11] LABS: ACT @ 1.70 U 281 SEC (193-297); ACT @ 2.84 U 382 SEC (260-420); BASELINE ACT 148 SEC (101-148); PATIENT WEIGHT 90.0k KG
[2017-10-11] MEDS: magnesium 1gm/100ml D5W IVPB 100 ML IV PRN ×2 (05:12→05:43)
[2017-10-11] MEDS: PROPOFOL 1000 MG/100 ML IV PRN ×2 (05:22→06:16)
[2017-10-11 05:34] LABS: ABG BASE EXCESS 1.2 mmol/L (-2.0-3.0); ABG HCO3 24.8 mmol/L (22.0-26.0); ABG OXYGEN SATURATION 99.5 % (95-98); ABG PCO2 35.2 mmHg (35.0-45.0); ABG PH 7.466 (7.350-7.450); ABG PO2 > 601.0 mmHg (60.0-100.0); CL (ABG) 104 mmol/L (99-107); FCOHb 0.7 % (0.5-1.5); FMetHb 0.3 % (0.3-1.12); FO2Hb 98.5 % (94-100); GLUCOSE (ABG) 125 mg/dl (70-105); IONIZED CA (ABG) 0.97 mmol/L (1.03-1.32); K (ABG) 4.5 mmol/L (3.3-5.1); NA (ABG) 132 mmol/L (135-145); TOTAL HEMOGLOBIN 8.5 G/dl (12.0-16.0)
[2017-10-11] MEDS: pantoprazole 40mg Tablet.DR PO SCH (07:30)
[2017-10-11] MEDS: buPROPion SR 100mg tab PO SCH ×2 (08:00→19:54)
[2017-10-11] MEDS: metoprolol tartrate 12.5mg (1/2 tablet) PO SCH ×2 (08:00→19:54)
[2017-10-11] MEDS ORDERED: aspirin 325mg tablet, delayed-release (Ecotrin) PO SCH (08:00)
[2017-10-11] MEDS: atorvastatin 10mg tablet PO SCH (08:00)
[2017-10-11] MEDS: docusate sod 100mg capsule PO SCH ×2 (08:00→19:54)
[2017-10-11 08:26] LABS: ABG BASE EXCESS -3.9 mmol/L (-2.0-3.0); ABG HCO3 20.9 mmol/L (22.0-26.0); ABG OXYGEN SATURATION 91.2 % (95-98); ABG PCO2 (T) 36.4 mmHg (32.0-45.0); ABG PH (T) 7.375 (7.350-7.450); ABG PO2 (T) 63.3 mmHg (83-108); FCOHb 0.3 % (0.5-1.5); FMetHb 0.2 % (0.3-1.12); FO2Hb 90.7 % (94-100); MINUTE VOLUME 7 L/min; PATIENT TEMPERATURE 36.6; PEEP 5 cm H2O; TIDAL VOLUME 388 mL
[2017-10-11] MEDS ORDERED: clopidogrel 300mg tablet PO ONE (08:35)
[2017-10-11] MEDS: dexmedetomidin/NS 400mcg/100ml 100 ML IV SCH ×2 (09:00→23:15)
[2017-10-11] MEDS: propofol inj 20 ML IV PRN (09:52)
[2017-10-11] MEDS: vancomycin/NS 1 GM ADD-VANTAGE 250 ML IV SCH ×2 (09:58→19:38)
[2017-10-11] MEDS ORDERED: propofol 1000mg/100ml bottle 100 ML IV PRN (10:01)
[2017-10-11] MEDS ORDERED: DOPamine 400mg/D5W 250ml 250 ML IV PRN (10:06)
[2017-10-11] MEDS ORDERED: niCARDipine/sod cl 20mg/200ml 200 ML IV PRN (10:08)
[2017-10-11] MEDS ORDERED: nitroGLYCERIN-Tridil 50MG/D5W 250 ML IV PRN (10:08)
[2017-10-11] MEDS ORDERED: morphine 2 MG/ML inj. syringe IV PRN (10:21)
[2017-10-11 13:56] LABS: ANION GAP 9 (8-16); BLOOD UREA NITROGEN 13 MG/DL (7-18); BUN/CREATININE RATIO 17.3 (6.6-38.0); CALCIUM 7.8 MG/DL (8.5-10.1); CHLORIDE 111 MMOL/L (99-107); CREATININE 0.75 MG/DL (0.40-0.90); GLUCOSE 92 MG/DL (70-104); MAGNESIUM 3.3 MG/DL (1.5-2.4); PHOSPHORUS 3.8 MG/DL (2.3-4.5); POTASSIUM 4.6 MMOL/L (3.5-5.1); SODIUM 142 MMOL/L (135-145); TOTAL CARBON DIOXIDE 21.8 MMOL/L (24-32); eGFR 76 ML/MIN
[2017-10-11] MEDS: mupirocin 2% nasal ointment 1gm UD NS SCH ×2 (16:38→19:56)
[2017-10-11] MEDS: insulin Lispro (HumaLOG) vial - multi-dose SQ SCH (18:00)
[2017-10-11] MEDS ORDERED: furosemide 40mg/4ml inj IV ONE (19:05)
[2017-10-12] VITALS (24 sets, daily range): BP systolic 100–193; BP diastolic 40–75
[2017-10-12] MEDS: ceFAZolin 1GM/D5W- ADD-VANTAGE 50 ML IV SCH (00:11)
[2017-10-12] MEDS: insulin regular, human inj. 100 UNITS in normal saline 100ml IV soln 100 ML IV SCH ×2 (01:20)
[2017-10-12 03:56] LABS: ALBUMIN 2.9 G/DL (3.4-5.0); ANION GAP 7 (8-16); BLOOD UREA NITROGEN 16 MG/DL (7-18); CALCIUM 7.8 MG/DL (8.5-10.1); CHLORIDE 111 MMOL/L (99-107); GLUCOSE 133 MG/DL (70-104); MAGNESIUM 2.4 MG/DL (1.5-2.4); PHOSPHORUS 3.7 MG/DL (2.3-4.5); POTASSIUM 4.5 MMOL/L (3.5-5.1); SODIUM 143 MMOL/L (135-145); eGFR 71 ML/MIN
[2017-10-12 03:57] LABS: BASOPHILS % (AUTO) 0.2 % (0-1); EOSINOPHILS # (AUTO) 0.2 X10'3 (0-0.9); EOSINOPHILS % (AUTO) 1.5 % (0-6); HEMATOCRIT 29.1 % (35.0-45.0); HEMOGLOBIN 9.8 g/dl (12.0-16.0); LYMPHOCYTES % (AUTO) 12.2 % (21-51); MEAN CORPUSCULAR HEMOGLOBIN 30.7 PG (27.0-31.0); MEAN CORPUSCULAR HGB CONC 33.8 % (33.0-36.5); MEAN CORPUSCULAR VOLUME 90.9 FL (78-98); MEAN PLATELET VOLUME 9.5 FL (7.4-10.4); MONOCYTES # (AUTO) 1.1 X10'3 (0-0.9); MONOCYTES % (AUTO) 6.8 % (2-12); NEUTROPHILS % (AUTO) 79.3 % (42-75); PLATELET COUNT 93 X10'3 (140-440); RED CELL DISTRIBUTION WIDTH 14.6 % (11.5-14.5); WHITE BLOOD COUNT 16.4 X10'3 (4.5-11.0)
[2017-10-12] MEDS: pantoprazole 40mg Tablet.DR PO SCH (07:30)
[2017-10-12] MEDS: metoprolol tartrate 25mg tablet PO SCH ×2 (08:39→20:51)
[2017-10-12] MEDS: docusate sod 100mg capsule PO SCH ×2 (08:40→20:51)
[2017-10-12] MEDS: buPROPion SR 100mg tab PO SCH ×2 (08:40→20:52)
[2017-10-12] MEDS: atorvastatin 10mg tablet PO SCH (08:40)
[2017-10-12] MEDS: ketorolac tromethamine 15mg/ml inj. IV PRN ×2 (08:56→16:00)
[2017-10-12] MEDS: mupirocin 2% nasal ointment 1gm UD NS SCH (08:57)
[2017-10-12] MEDS: clopidogrel 75mg tablet PO SCH (08:57)
[2017-10-12] MEDS: aspirin 81mg tablet.DR PO SCH (08:57)
[2017-10-12] MEDS: insulin Lispro (HumaLOG) vial - multi-dose SQ SCH ×3 (09:24→20:53)
[2017-10-12] MEDS: sodium chloride 0.45% 1,000 ML IV SCH (12:50)
[2017-10-12] MEDS: NUT.TX.GLUC.INTOLER,LAC-FR,SOY (GLUCERNA) 237 ML PO SCH ×2 (13:00→19:17)
[2017-10-12] MEDS ORDERED: metoclopramide 5 mg/ml inj IV PRN (15:40)
[2017-10-12] MEDS: metoclopramide 5 mg/ml inj IV PRN (15:59)
[2017-10-12] MEDS ORDERED: metoprolol tartrate 50mg tablet PO STA (18:25)
[2017-10-12] MEDS ORDERED: lisinopril 10 MG tablet PO ONE (18:25)
[2017-10-12] MEDS ORDERED: dextrose 50%-water 50ml dispensing syringe IV PRN ×2 (19:30)
[2017-10-12] MEDS ORDERED: dextrose ORAL solution 15 GM/59 ML bottle PO PRN ×2 (19:30)
[2017-10-12] MEDS ORDERED: glucagon, human recombinant 1mg kit SUBCUT PRN (19:30)
[2017-10-12] MEDS: insulin glargine (Lantus) pen - multi-dose SQ SCH (20:59)
[2017-10-12] MEDS ORDERED: metoprolol tartrate 50mg tablet PO ONE (22:00)
[2017-10-13] VITALS (24 sets, daily range): BP systolic 110–187; BP diastolic 44–92
[2017-10-13] MEDS: hydrALAZINE 20mg/ml inj. IV PRN ×2 (01:05→14:13)
[2017-10-13] MEDS: morphine 4 MG/ML inj SYRINge IV PRN (01:11)
[2017-10-13] MEDS: ketorolac tromethamine 15mg/ml inj. IV PRN (03:59)
[2017-10-13 05:59] LABS: BASOPHILS % (AUTO) 0 % (0-1); EOSINOPHILS # (AUTO) 0.2 X10'3 (0-0.9); HEMATOCRIT 31.7 % (35.0-45.0); HEMOGLOBIN 10.8 g/dl (12.0-16.0); LYMPHOCYTES # (AUTO) 2.2 X10'3 (1.1-4.8); LYMPHOCYTES % (AUTO) 10.5 % (21-51); MEAN CORPUSCULAR HEMOGLOBIN 30.9 PG (27.0-31.0); MEAN CORPUSCULAR HGB CONC 34.1 % (33.0-36.5); MEAN CORPUSCULAR VOLUME 90.5 FL (78-98); MEAN PLATELET VOLUME 9.4 FL (7.4-10.4); MONOCYTES # (AUTO) 1.4 X10'3 (0-0.9); MONOCYTES % (AUTO) 6.5 % (2-12); NEUTROPHILS # (AUTO) 17.2 X10'3 (1.8-7.7); PLATELET COUNT 142 X10'3 (140-440); RED BLOOD COUNT 3.51 X10'6 (4.20-5.60); RED CELL DISTRIBUTION WIDTH 14.8 % (11.5-14.5); WHITE BLOOD COUNT 20.9 X10'3 (4.5-11.0)
[2017-10-13] MEDS: metoclopramide 5 mg/ml inj IV PRN (06:12)
[2017-10-13 06:34] LABS: ANION GAP 10 (8-16); BLOOD UREA NITROGEN 29 MG/DL (7-18); BUN/CREATININE RATIO 38.7 (6.6-38.0); CALCIUM 8.6 MG/DL (8.5-10.1); CHLORIDE 106 MMOL/L (99-107); CREATININE 0.75 MG/DL (0.40-0.90); GLUCOSE 194 MG/DL (70-104); MAGNESIUM 2.4 MG/DL (1.5-2.4); PHOSPHORUS 3.1 MG/DL (2.3-4.5); POTASSIUM 4.7 MMOL/L (3.5-5.1); SODIUM 141 MMOL/L (135-145); TOTAL CARBON DIOXIDE 25.3 MMOL/L (24-32); eGFR 76 ML/MIN
[2017-10-13] MEDS: clopidogrel 75mg tablet PO SCH (07:57)
[2017-10-13] MEDS: metoprolol tartrate 25mg tablet PO SCH ×3 (07:57→19:35)
[2017-10-13] MEDS: buPROPion SR 100mg tab PO SCH ×2 (07:57→19:35)
[2017-10-13] MEDS: atorvastatin 10mg tablet PO SCH (07:57)
[2017-10-13] MEDS: docusate sod 100mg capsule PO SCH ×2 (07:57→19:34)
[2017-10-13] MEDS: pantoprazole 40mg Tablet.DR PO SCH (07:57)
[2017-10-13] MEDS: aspirin 81mg tablet.DR PO SCH (07:57)
[2017-10-13] MEDS: NUT.TX.GLUC.INTOLER,LAC-FR,SOY (GLUCERNA) 237 ML PO SCH (08:00)
[2017-10-13] MEDS: insulin Lispro (HumaLOG) vial - multi-dose SQ SCH ×3 (10:02→19:40)
[2017-10-13] MEDS: lisinopril 10 MG tablet PO SCH (10:06)
[2017-10-13] MEDS: lactose-reduced food (Ensure High Protein) 237ml bottle PO SCH (12:30)
[2017-10-13] MEDS: HYDROcodone/acetaminophen 10/325mg tab PO PRN (19:35)
[2017-10-13] MEDS: insulin glargine (Lantus) pen - multi-dose SQ SCH (21:03)
[2017-10-14] VITALS (24 sets, daily range): BP systolic 95–182; BP diastolic 44–73
[2017-10-14] MEDS: ketorolac tromethamine 15mg/ml inj. IV PRN (02:14)
[2017-10-14] MEDS: HYDROcodone/acetaminophen 10/325mg tab PO PRN (02:14)
[2017-10-14 05:31] LABS: BASOPHILS % (AUTO) 0.2 % (0-1); EOSINOPHILS % (AUTO) 0.1 % (0-6); HEMATOCRIT 31.1 % (35.0-45.0); HEMOGLOBIN 8.6 g/dl (12.0-16.0); LYMPHOCYTES # (AUTO) 3.3 X10'3 (1.1-4.8); LYMPHOCYTES % (AUTO) 17.4 % (21-51); MEAN CORPUSCULAR HEMOGLOBIN 25.1 PG (27.0-31.0); MEAN CORPUSCULAR HGB CONC 27.6 % (33.0-36.5); MEAN PLATELET VOLUME 8.6 FL (7.4-10.4); MONOCYTES # (AUTO) 1.2 X10'3 (0-0.9); MONOCYTES % (AUTO) 6.6 % (2-12); NEUTROPHILS # (AUTO) 14.3 X10'3 (1.8-7.7); NEUTROPHILS % (AUTO) 75.7 % (42-75); PLATELET COUNT 147 X10'3 (140-440); RED BLOOD COUNT 3.41 X10'6 (4.20-5.60); RED CELL DISTRIBUTION WIDTH 14.9 % (11.5-14.5); WHITE BLOOD COUNT 18.9 X10'3 (4.5-11.0)
[2017-10-14 06:10] LABS: ALBUMIN 2.7 G/DL (3.4-5.0); ANION GAP 4 (8-16); BLOOD UREA NITROGEN 38 MG/DL (7-18); BUN/CREATININE RATIO 46.3 (6.6-38.0); CALCIUM 8.4 MG/DL (8.5-10.1); CHLORIDE 107 MMOL/L (99-107); CREATININE 0.82 MG/DL (0.40-0.90); GLUCOSE 142 MG/DL (70-104); MAGNESIUM 2.2 MG/DL (1.5-2.4); PHOSPHORUS 3.3 MG/DL (2.3-4.5); POTASSIUM 4.7 MMOL/L (3.5-5.1); SODIUM 140 MMOL/L (135-145); TOTAL CARBON DIOXIDE 28.9 MMOL/L (24-32); eGFR 69 ML/MIN
[2017-10-14] MEDS: metoprolol tartrate 25mg tablet PO SCH ×2 (08:02→19:39)
[2017-10-14] MEDS: aspirin 81mg tablet.DR PO SCH (08:02)
[2017-10-14] MEDS: atorvastatin 10mg tablet PO SCH (08:03)
[2017-10-14] MEDS: docusate sod 100mg capsule PO SCH ×2 (08:03→19:40)
[2017-10-14] MEDS: lisinopril 10 MG tablet PO SCH (08:03)
[2017-10-14] MEDS: pantoprazole 40mg Tablet.DR PO SCH (08:03)
[2017-10-14] MEDS: buPROPion SR 100mg tab PO SCH ×2 (08:03→19:40)
[2017-10-14] MEDS: clopidogrel 75mg tablet PO SCH (08:03)
[2017-10-14] MEDS: lactose-reduced food (Ensure High Protein) 237ml bottle PO SCH ×2 (08:12→12:37)
[2017-10-14] MEDS ORDERED: amiodarone 150mg/dext, iso-os 100 ML IV ONE (08:30)
[2017-10-14] MEDS: amiodarone/D5 360MG/200ML BAG 200 ML IV SCH ×3 (08:58→15:34)
[2017-10-14] MEDS: insulin Lispro (HumaLOG) vial - multi-dose SQ SCH ×2 (09:43→14:08)
[2017-10-14] MEDS: sodium chloride 0.45% 1,000 ML IV SCH (12:50)
[2017-10-14] MEDS: hydrALAZINE 20mg/ml inj. IV PRN (17:43)
[2017-10-14] MEDS: insulin glargine (Lantus) pen - multi-dose SQ SCH (21:16)
[2017-10-15] VITALS (25 sets, daily range): BP systolic 82–175; BP diastolic 43–74
[2017-10-15] MEDS: amiodarone/D5 360MG/200ML BAG 200 ML IV SCH ×4 (01:45→16:54)
[2017-10-15] MEDS: hydrALAZINE 20mg/ml inj. IV PRN (03:09)
[2017-10-15 05:51] LABS: BASOPHILS % (AUTO) 0.2 % (0-1); EOSINOPHILS # (AUTO) 0.2 X10'3 (0-0.9); EOSINOPHILS % (AUTO) 1.4 % (0-6); HEMATOCRIT 31.5 % (35.0-45.0); HEMOGLOBIN 10.8 g/dl (12.0-16.0); LYMPHOCYTES # (AUTO) 2.5 X10'3 (1.1-4.8); LYMPHOCYTES % (AUTO) 14.8 % (21-51); MEAN CORPUSCULAR HEMOGLOBIN 30.9 PG (27.0-31.0); MEAN CORPUSCULAR HGB CONC 34.2 % (33.0-36.5); MEAN CORPUSCULAR VOLUME 90.3 FL (78-98); MEAN PLATELET VOLUME 8.6 FL (7.4-10.4); MONOCYTES # (AUTO) 1.4 X10'3 (0-0.9); MONOCYTES % (AUTO) 8.5 % (2-12); NEUTROPHILS # (AUTO) 12.6 X10'3 (1.8-7.7); NEUTROPHILS % (AUTO) 75.1 % (42-75); PLATELET COUNT 174 X10'3 (140-440); RED BLOOD COUNT 3.49 X10'6 (4.20-5.60); RED CELL DISTRIBUTION WIDTH 14.7 % (11.5-14.5); WHITE BLOOD COUNT 16.8 X10'3 (4.5-11.0)
[2017-10-15] MEDS ORDERED: furosemide 40mg/4ml inj IV ONE (06:55)
[2017-10-15 07:02] LABS: ALBUMIN 2.8 G/DL (3.4-5.0); ANION GAP 4 (8-16); BLOOD UREA NITROGEN 36 MG/DL (7-18); BUN/CREATININE RATIO 52.9 (6.6-38.0); CALCIUM 8.7 MG/DL (8.5-10.1); CHLORIDE 106 MMOL/L (99-107); CREATININE 0.68 MG/DL (0.40-0.90); GLUCOSE 174 MG/DL (70-104); PHOSPHORUS 3.4 MG/DL (2.3-4.5); POTASSIUM 4.5 MMOL/L (3.5-5.1); SODIUM 140 MMOL/L (135-145); TOTAL CARBON DIOXIDE 29.8 MMOL/L (24-32); eGFR 85 ML/MIN
[2017-10-15] MEDS: lactose-reduced food (Ensure High Protein) 237ml bottle PO SCH ×2 (07:30→12:44)
[2017-10-15] MEDS ORDERED: amiodarone 200mg tablet PO SCH (08:00)
[2017-10-15] MEDS: clopidogrel 75mg tablet PO SCH (08:15)
[2017-10-15] MEDS: docusate sod 100mg capsule PO SCH ×2 (08:15→20:10)
[2017-10-15] MEDS: aspirin 81mg tablet.DR PO SCH (08:16)
[2017-10-15] MEDS: buPROPion SR 100mg tab PO SCH ×2 (08:16→20:10)
[2017-10-15] MEDS: losartan 50mg tablet PO SCH (08:16)
[2017-10-15] MEDS: atorvastatin 10mg tablet PO SCH (08:16)
[2017-10-15] MEDS: pantoprazole 40mg Tablet.DR PO SCH (08:17)
[2017-10-15] MEDS: metoprolol tartrate 25mg tablet PO SCH ×2 (08:30→20:10)
[2017-10-15] MEDS: HYDROcodone/acetaminophen 10/325mg tab PO PRN ×2 (08:51→22:24)
[2017-10-15] MEDS: magnesium 1gm/100ml D5W IVPB 100 ML IV PRN (10:48)
[2017-10-15] MEDS: insulin Lispro (HumaLOG) vial - multi-dose SQ SCH ×2 (13:39→20:14)
[2017-10-15] MEDS: insulin glargine (Lantus) pen - multi-dose SQ SCH (21:52)
[2017-10-15] MEDS: ketorolac tromethamine 15mg/ml inj. IV PRN (22:26)
[2017-10-16] VITALS (24 sets, daily range): BP systolic 111–174; BP diastolic 42–93
[2017-10-16] MEDS: amiodarone/D5 360MG/200ML BAG 200 ML IV SCH ×4 (02:08→20:20)
[2017-10-16 06:39] LABS: MAGNESIUM 1.9 MG/DL (1.5-2.4); POTASSIUM 4.1 MMOL/L (3.5-5.1)
[2017-10-16] MEDS: metoprolol tartrate 25mg tablet PO SCH ×2 (08:14→19:24)
[2017-10-16] MEDS: HYDROchlorothiazide 25mg tablet PO SCH (08:14)
[2017-10-16] MEDS: docusate sod 100mg capsule PO SCH ×2 (08:15→20:00)
[2017-10-16] MEDS: atorvastatin 10mg tablet PO SCH (08:15)
[2017-10-16] MEDS: clopidogrel 75mg tablet PO SCH (08:15)
[2017-10-16] MEDS: aspirin 81mg tablet.DR PO SCH (08:15)
[2017-10-16] MEDS: pantoprazole 40mg Tablet.DR PO SCH (08:15)
[2017-10-16] MEDS: losartan 50mg tablet PO SCH (08:15)
[2017-10-16] MEDS: buPROPion SR 100mg tab PO SCH ×2 (08:15→19:24)
[2017-10-16] MEDS: lactose-reduced food (Ensure High Protein) 237ml bottle PO SCH ×2 (08:21→13:22)
[2017-10-16] MEDS ORDERED: amiodarone 150mg/dext, iso-os 100 ML IV ONE (09:30)
[2017-10-16] MEDS ORDERED: potassium Cl 20 mEq SR tablet PO PRN (10:10)
[2017-10-16] MEDS: insulin Lispro (HumaLOG) vial - multi-dose SQ SCH ×3 (10:25→19:28)
[2017-10-16 10:29] LABS: BASOPHILS % (AUTO) 0.2 % (0-1); EOSINOPHILS # (AUTO) 0.3 X10'3 (0-0.9); EOSINOPHILS % (AUTO) 1.4 % (0-6); HEMOGLOBIN 10.8 g/dl (12.0-16.0); LYMPHOCYTES # (AUTO) 2.2 X10'3 (1.1-4.8); LYMPHOCYTES % (AUTO) 12.2 % (21-51); MEAN CORPUSCULAR HEMOGLOBIN 30.6 PG (27.0-31.0); MEAN CORPUSCULAR HGB CONC 33.9 % (33.0-36.5); MEAN CORPUSCULAR VOLUME 90.2 FL (78-98); MEAN PLATELET VOLUME 8.5 FL (7.4-10.4); MONOCYTES # (AUTO) 0.9 X10'3 (0-0.9); MONOCYTES % (AUTO) 4.8 % (2-12); NEUTROPHILS # (AUTO) 14.4 X10'3 (1.8-7.7); NEUTROPHILS % (AUTO) 81.4 % (42-75); PLATELET COUNT 226 X10'3 (140-440); RED BLOOD COUNT 3.54 X10'6 (4.20-5.60); RED CELL DISTRIBUTION WIDTH 14.6 % (11.5-14.5); WHITE BLOOD COUNT 17.6 X10'3 (4.5-11.0)
[2017-10-16 10:38] LABS: ALBUMIN 2.6 G/DL (3.4-5.0); ANION GAP 8 (8-16); BLOOD UREA NITROGEN 34 MG/DL (7-18); BUN/CREATININE RATIO 53.1 (6.6-38.0); CALCIUM 8.9 MG/DL (8.5-10.1); CHLORIDE 104 MMOL/L (99-107); CREATININE 0.64 MG/DL (0.40-0.90); GLUCOSE 251 MG/DL (70-104); POTASSIUM 4.1 MMOL/L (3.5-5.1); SODIUM 141 MMOL/L (135-145); TOTAL CARBON DIOXIDE 29.2 MMOL/L (24-32); eGFR > 90 ML/MIN
[2017-10-16] MEDS: magnesium Cl slow-release 64mg tablet PO PRN ×2 (10:39→17:55)
[2017-10-16] MEDS: potassium Cl 20 mEq SR tablet PO PRN ×2 (10:40→17:55)
[2017-10-16] MEDS: HYDROcodone/acetaminophen 10/325mg tab PO PRN (12:08)
[2017-10-16] MEDS ORDERED: furosemide 40mg/4ml inj IV ONE (12:25)
[2017-10-16] MEDS: ipratropium/albuterol 3ml nebule NEB PRN ×2 (12:34→20:58)
[2017-10-16] MEDS: sodium chloride 0.45% 1,000 ML IV SCH (12:50)
[2017-10-16] MEDS ORDERED: furosemide 20MG tablet PO ONE (21:30)
[2017-10-16] MEDS: insulin glargine (Lantus) pen - multi-dose SQ SCH (22:26)
[2017-10-17] VITALS (26 sets, daily range): BP systolic 98–205; BP diastolic 47–83
[2017-10-17] MEDS: potassium Cl 20 mEq SR tablet PO PRN (01:11)
[2017-10-17] MEDS: amiodarone/D5 360MG/200ML BAG 200 ML IV SCH ×4 (02:10→21:27)
[2017-10-17] MEDS: ipratropium/albuterol 3ml nebule NEB PRN ×4 (04:07→21:03)
[2017-10-17] MEDS: metoprolol tartrate 25mg tablet PO SCH (04:17)
[2017-10-17 07:40] LABS: BASOPHILS % (AUTO) 0 % (0-1); EOSINOPHILS # (AUTO) 0.3 X10'3 (0-0.9); HEMATOCRIT 31.6 % (35.0-45.0); HEMOGLOBIN 10.6 g/dl (12.0-16.0); LYMPHOCYTES # (AUTO) 2.3 X10'3 (1.1-4.8); LYMPHOCYTES % (AUTO) 16.5 % (21-51); MEAN CORPUSCULAR HEMOGLOBIN 30.5 PG (27.0-31.0); MEAN CORPUSCULAR HGB CONC 33.4 % (33.0-36.5); MEAN CORPUSCULAR VOLUME 91.1 FL (78-98); MEAN PLATELET VOLUME 8.3 FL (7.4-10.4); MONOCYTES # (AUTO) 1.2 X10'3 (0-0.9); MONOCYTES % (AUTO) 8.9 % (2-12); NEUTROPHILS % (AUTO) 72.6 % (42-75); PLATELET COUNT 219 X10'3 (140-440); RED BLOOD COUNT 3.47 X10'6 (4.20-5.60); RED CELL DISTRIBUTION WIDTH 14.6 % (11.5-14.5); WHITE BLOOD COUNT 13.8 X10'3 (4.5-11.0)
[2017-10-17] MEDS: metoprolol tartrate 50mg tablet PO SCH ×2 (08:00→21:28)
[2017-10-17 08:01] LABS: ALBUMIN 2.6 G/DL (3.4-5.0); ANION GAP 4 (8-16); BLOOD UREA NITROGEN 23 MG/DL (7-18); BUN/CREATININE RATIO 31.9 (6.6-38.0); CHLORIDE 105 MMOL/L (99-107); CREATININE 0.72 MG/DL (0.40-0.90); GLUCOSE 124 MG/DL (70-104); MAGNESIUM 1.5 MG/DL (1.5-2.4); PHOSPHORUS 3.8 MG/DL (2.3-4.5); POTASSIUM 3.7 MMOL/L (3.5-5.1); SODIUM 142 MMOL/L (135-145); TOTAL CARBON DIOXIDE 33.1 MMOL/L (24-32); eGFR 80 ML/MIN
[2017-10-17] MEDS: lactose-reduced food (Ensure High Protein) 237ml bottle PO SCH ×2 (08:02→12:34)
[2017-10-17] MEDS: pantoprazole 40mg Tablet.DR PO SCH (08:02)
[2017-10-17] MEDS: amLODIPine 5mg tablet PO SCH (08:02)
[2017-10-17] MEDS: buPROPion SR 100mg tab PO SCH ×2 (08:02→21:27)
[2017-10-17] MEDS: aspirin 81mg tablet.DR PO SCH (08:02)
[2017-10-17] MEDS: HYDROchlorothiazide 25mg tablet PO SCH (08:02)
[2017-10-17] MEDS: losartan 50mg tablet PO SCH (08:02)
[2017-10-17] MEDS: clopidogrel 75mg tablet PO SCH (08:02)
[2017-10-17] MEDS: docusate sod 100mg capsule PO SCH ×2 (08:02→20:00)
[2017-10-17] MEDS: atorvastatin 10mg tablet PO SCH (08:02)
[2017-10-17] MEDS: insulin Lispro (HumaLOG) vial - multi-dose SQ SCH ×2 (08:38→12:46)
[2017-10-17] MEDS: HYDROcodone/acetaminophen 10/325mg tab PO PRN ×2 (10:27→21:27)
[2017-10-17] MEDS: insulin glargine (Lantus) pen - multi-dose SQ SCH (21:38)
[2017-10-18] VITALS (16 sets, daily range): BP systolic 107–175; BP diastolic 44–92
[2017-10-18] MEDS: amiodarone/D5 360MG/200ML BAG 200 ML IV SCH (02:40)
[2017-10-18] MEDS: ipratropium/albuterol 3ml nebule NEB PRN ×3 (02:40→14:48)
[2017-10-18 04:45] LABS: BASOPHILS % (AUTO) 0.2 % (0-1); EOSINOPHILS # (AUTO) 0.2 X10'3 (0-0.9); EOSINOPHILS % (AUTO) 1.9 % (0-6); HEMATOCRIT 31.1 % (35.0-45.0); HEMOGLOBIN 10.5 g/dl (12.0-16.0); LYMPHOCYTES # (AUTO) 1.9 X10'3 (1.1-4.8); LYMPHOCYTES % (AUTO) 15.8 % (21-51); MEAN CORPUSCULAR HEMOGLOBIN 30.7 PG (27.0-31.0); MEAN CORPUSCULAR HGB CONC 33.7 % (33.0-36.5); MEAN PLATELET VOLUME 8.2 FL (7.4-10.4); MONOCYTES # (AUTO) 1.3 X10'3 (0-0.9); MONOCYTES % (AUTO) 10.6 % (2-12); NEUTROPHILS # (AUTO) 8.8 X10'3 (1.8-7.7); NEUTROPHILS % (AUTO) 71.5 % (42-75); PLATELET COUNT 219 X10'3 (140-440); RED BLOOD COUNT 3.42 X10'6 (4.20-5.60); RED CELL DISTRIBUTION WIDTH 14.7 % (11.5-14.5); WHITE BLOOD COUNT 12.3 X10'3 (4.5-11.0)
[2017-10-18 04:59] LABS: ALBUMIN 2.5 G/DL (3.4-5.0); ANION GAP 3 (8-16); BLOOD UREA NITROGEN 23 MG/DL (7-18); BUN/CREATININE RATIO 27.4 (6.6-38.0); CHLORIDE 104 MMOL/L (99-107); CREATININE 0.84 MG/DL (0.40-0.90); GLUCOSE 138 MG/DL (70-104); POTASSIUM 3.5 MMOL/L (3.5-5.1); SODIUM 141 MMOL/L (135-145); TOTAL CARBON DIOXIDE 34.3 MMOL/L (24-32); eGFR 67 ML/MIN
[2017-10-18] MEDS: lactose-reduced food (Ensure High Protein) 237ml bottle PO SCH ×2 (07:30→12:30)
[2017-10-18] MEDS: buPROPion SR 100mg tab PO SCH (09:11)
[2017-10-18] MEDS: losartan 50mg tablet PO SCH (09:12)
[2017-10-18] MEDS: atorvastatin 10mg tablet PO SCH (09:12)
[2017-10-18] MEDS: aspirin 81mg tablet.DR PO SCH (09:12)
[2017-10-18] MEDS: HYDROchlorothiazide 25mg tablet PO SCH (09:12)
[2017-10-18] MEDS: docusate sod 100mg capsule PO SCH (09:12)
[2017-10-18] MEDS: amLODIPine 5mg tablet PO SCH (09:12)
[2017-10-18] MEDS: metoprolol tartrate 50mg tablet PO SCH (09:12)
[2017-10-18] MEDS: pantoprazole 40mg Tablet.DR PO SCH (09:12)
[2017-10-18] MEDS: clopidogrel 75mg tablet PO SCH (09:12)
[2017-10-18] MEDS: HYDROcodone/acetaminophen 10/325mg tab PO PRN (09:13)
[2017-10-18] MEDS ORDERED: amiodarone 200mg tablet PO ONE (09:25)
[2017-10-18] MEDS: insulin Lispro (HumaLOG) vial - multi-dose SQ SCH ×2 (09:46→14:04)
[2017-10-18] MEDS: sodium chloride 0.45% 1,000 ML IV SCH (12:50)
[2017-10-18] MEDS ORDERED: amiodarone 200mg tablet PO SCH (20:00)
== END 2017-10-18 15:55 | DRG 219 ==
LOC: ER 18:45 → ED HOLD 20:49 → PCU 3S 21:55 → ICU 2S 10-10 12:07
PROVIDERS: ADMIT Internal Medicine; ATTEND Internal Medicine Interventional Cardiology
PROC: 021009W Bypass Coronary Artery, One Artery from Aorta with Autologous Venous Tissue, Open Approach (ICD-10-PCS; 2017-10-10)
PROC: 02100Z9 Bypass Coronary Artery, One Artery from Left Internal Mammary, Open Approach (ICD-10-PCS; 2017-10-10)
PROC: 06BQ4ZZ Excision of Left Saphenous Vein, Percutaneous Endoscopic Approach (ICD-10-PCS; 2017-10-10)
PROC: 02CX0ZZ Extirpation of Matter from Thoracic Aorta, Ascending/Arch, Open Approach (ICD-10-PCS; 2017-10-10)
PROC: B24BZZ4 Ultrasonography of Heart with Aorta, Transesophageal (ICD-10-PCS; 2017-10-10)
PROC: 5A1221Z Performance of Cardiac Output, Continuous (ICD-10-PCS; 2017-10-10)
PROC: 02L70CK Occlusion of Left Atrial Appendage with Extraluminal Device, Open Approach (ICD-10-PCS; 2017-10-10)
PROC: 05HM33Z Insertion of Infusion Device into Right Internal Jugular Vein, Percutaneous Approach (ICD-10-PCS; 2017-10-10)
PROC: 02RF08Z Replacement of Aortic Valve with Zooplastic Tissue, Open Approach (ICD-10-PCS; principal; 2017-10-10 07:25)
DX: I35.0 Nonrheumatic aortic (valve) stenosis (principal); I21.4 Non-ST elevation (NSTEMI) myocardial infarction; Z68.41 Body mass index [BMI] 40.0-44.9, adult; I50.30 Unspecified diastolic (congestive) heart failure; I25.110 Atherosclerotic heart disease of native coronary artery with unstable angina pectoris; E11.51 Type 2 diabetes mellitus with diabetic peripheral angiopathy without gangrene; E11.65 Type 2 diabetes mellitus with hyperglycemia; E66.9 Obesity, unspecified; E78.5 Hyperlipidemia, unspecified; F17.210 Nicotine dependence, cigarettes, uncomplicated; G89.29 Other chronic pain; M54.9 Dorsalgia, unspecified; D72.829 Elevated white blood cell count, unspecified; M19.90 Unspecified osteoarthritis, unspecified site; I11.0 Hypertensive heart disease with heart failure; I48.0 Paroxysmal atrial fibrillation; I70.0 Atherosclerosis of aorta; Z95.820 Peripheral vascular angioplasty status with implants and grafts; Z88.1 Allergy status to other antibiotic agents; Z91.041 Radiographic dye allergy status; Z79.4 Long term (current) use of insulin; Z79.82 Long term (current) use of aspirin; Z79.02 Long term (current) use of antithrombotics/antiplatelets; Z79.899 Other long term (current) drug therapy; Z80.8 Family history of malignant neoplasm of other organs or systems
CPT/HCPCS: 0232T; 93312; 93325; 96374; 96375; 99291; 36415; 36600; 71045; 80048; 80053; 82330; 82435; 82803; 82947; 82948; 83036; 83735; 84100; 84132; 84295; 84478; 84484; 85018; 85025; 85347; 85384; 85576; 85610; 85730; 86885; 86900; 86901; 86920; 87070; 88300; 88305; 93005; 93971; 94002; 94003; 94060; 94640; 94760; 97110; 97116; 97162; 97530; A6213; A6257; A6258; A6402; A6449; A7000; A7048; G0378; J0171; J0282; J0360; J0690; J1265; J1644; J1815; J1885; J1940; J2001; J2060; J2150; J2250; J2270; J2370; J2405; J2440; J2704; J2765; J2930; J3370; J3475; J3480; J3490; J7030; J7060; J7120; P9045; P9047; Q0163

== ENCOUNTER 2019-06-15 10:44 | Emergency (ER) | payer MEDICARE, OTHER ==
[~2019-06-15] VITALS: Ht 162.6 cm; Wt 86.0 kg
[~2019-06-15 10:44] MED LIST changes: -CLOP75TA15 PO; -RANI150T44 PO
[2019-06-15] MEDS ORDERED: HYDROcodone/acetaminophen 5mg/325mg tablet PO ONE (12:35)
[2019-06-15] MEDS ORDERED: ondansetron 4mg rapidly disintigrating tab PO ONE (12:35)
[2019-06-15] MEDS ORDERED: LIDOcaine 5% patch TP ONE (12:35)
[2019-06-15 13:33] VITALS: BP 145/102
== END 2019-06-15 13:39 | disposition home or self-care (01) ==
LOC: ER 10:44
DX: S43.492A Other sprain of left shoulder joint, initial encounter (principal); S63.592A Other specified sprain of left wrist, initial encounter; I25.10 Atherosclerotic heart disease of native coronary artery without angina pectoris; E11.9 Type 2 diabetes mellitus without complications; G89.29 Other chronic pain; Z98.61 Coronary angioplasty status; Z98.890 Other specified postprocedural states; Z87.891 Personal history of nicotine dependence; Z88.6 Allergy status to analgesic agent; Z91.041 Radiographic dye allergy status; Z88.1 Allergy status to other antibiotic agents; Z79.82 Long term (current) use of aspirin; Z79.84 Long term (current) use of oral hypoglycemic drugs; Z79.899 Other long term (current) drug therapy; X50.9XXA Other and unspecified overexertion or strenuous movements or postures, initial encounter; Y93.89 Activity, other specified; Y92.89 Other specified places as the place of occurrence of the external cause; Y99.8 Other external cause status
CPT/HCPCS: 29125; 73060; 73070; 73130; 99284

== ENCOUNTER 2019-09-28 17:32 | Emergency (ER) | payer MEDICARE, OTHER ==
[~2019-09-28] VITALS: Ht 165.1 cm; Wt 100.0 kg
[2019-09-28 19:34] LABS: BASOPHILS # (AUTO) 0.2 X10'3 (0-0.2); BASOPHILS % (AUTO) 1.1 % (0-1); EOSINOPHILS # (AUTO) 0.1 X10'3 (0-0.9); EOSINOPHILS % (AUTO) 0.5 % (0-6); HEMATOCRIT 38.7 % (35.0-45.0); HEMOGLOBIN 12.9 g/dl (12.0-16.0); LYMPHOCYTES # (AUTO) 3.6 X10'3 (1.1-4.8); LYMPHOCYTES % (AUTO) 21.5 % (21-51); MEAN CORPUSCULAR HGB CONC 33.2 g/dL (33.0-36.5); MEAN CORPUSCULAR VOLUME 87.3 FL (78-98); MEAN PLATELET VOLUME 8.2 FL (7.4-10.4); MONOCYTES # (AUTO) 1.6 X10'3 (0-0.9); MONOCYTES % (AUTO) 9.7 % (2-12); NEUTROPHILS # (AUTO) 11.3 X10'3 (1.8-7.7); NEUTROPHILS % (AUTO) 67.2 % (42-75); PLATELET COUNT 265 X10'3 (140-440); RED BLOOD COUNT 4.43 X10'6 (4.20-5.60); RED CELL DISTRIBUTION WIDTH 14.8 % (11.5-14.5); WHITE BLOOD COUNT 16.8 X10'3 (4.5-11.0)
[2019-09-28 19:34] LABS: CLARITY,URINE CLEAR (Clear); COLOR,URINE YELLOW (Yellow); GLUCOSE, URINE NEGATIVE (Neg); KETONES,URINE NEGATIVE (Neg); LEUKOCYTE ESTERASE ,URINE TRACE (Neg); NITRITES, URINE NEGATIVE (Neg); OCCULT BLOOD,URINE NEGATIVE (Neg); PH,URINE 5.5 (4.8-8.0); PROTEIN,URINE NEGATIVE (Neg); UROBILINOGEN,URINE 0.2 E.U/dL (0.2-1.0)
[2019-09-28 19:39] LABS: BACTERIA,URINE FEW /HPF (Neg); RBC,URINE 0-2 /HPF (0-2); UA COLLECTION TYPE STRAIGHT CATH
[2019-09-28 19:40] LABS: SQUAMOUS EPITHELIAL CELL,UR FEW /LPF (FEW)
[2019-09-28 19:41] LABS: ALANINE AMINOTRANSFERASE 14 U/L (12-78); ALBUMIN 3.3 G/DL (3.4-5.0); ALBUMIN/GLOBULIN RATIO 0.8 (1.1-1.5); ALKALINE PHOSPHATASE 53 IU/L (46-116); ANION GAP 11 (8-16); ASPARTATE AMINO TRANSFERASE 12 U/L (10-37); BILIRUBIN,TOTAL 0.7 MG/DL (0.1-1.0); BLOOD UREA NITROGEN 26 MG/DL (7-18); BUN/CREATININE RATIO 10.8 (6.6-38.0); CALCIUM 9.4 MG/DL (8.5-10.1); CHLORIDE 101 MMOL/L (99-107); GLUCOSE 120 MG/DL (70-104); SODIUM 140 MMOL/L (135-145); TOTAL CARBON DIOXIDE 27.9 MMOL/L (24-32); TOTAL PROTEIN 7.4 G/DL (6.4-8.2); eGFR 20 ML/MIN
[2019-09-28] MEDS ORDERED: ketorolac tromethamine 15mg/ml inj. IM ONE (19:45)
[2019-09-28 19:51] LABS: POTASSIUM 2.7 MMOL/L (3.5-5.1)
[2019-09-28] MEDS ORDERED: normal saline 1000ML IV soln IVB ONE (20:10)
[2019-09-28] MEDS ORDERED: potassium Cl 20 mEq SR tablet PO STA (20:28)
[2019-09-28] MEDS ORDERED: potassium Cl 10 mEq/100mL bag IV ONE (20:30)
[2019-09-28] MEDS ORDERED: POTA10CA44 PO (21:18)
[2019-09-28] MEDS ORDERED: morphine 4 MG/ML inj SYRINge IV ONE (21:25)
[2019-09-28 22:03] VITALS: BP 163/57
== END 2019-09-28 22:04 | disposition home or self-care (01) ==
LOC: ER 17:32
DX: G89.29 Other chronic pain (principal); M54.5 Low back pain; E87.6 Hypokalemia; I25.10 Atherosclerotic heart disease of native coronary artery without angina pectoris; E11.9 Type 2 diabetes mellitus without complications; Z98.61 Coronary angioplasty status; Z98.890 Other specified postprocedural states; Z60.2 Problems related to living alone; Z79.2 Long term (current) use of antibiotics; Z88.8 Allergy status to other drugs, medicaments and biological substances; Z79.82 Long term (current) use of aspirin; Z79.899 Other long term (current) drug therapy
CPT/HCPCS: 36415; 80053; 81001; 85025; 87077; 87088; 87186; 96361; 96372; 96374; 96375; 99284; J1885; J2270; J3480; J7030

== ENCOUNTER 2022-10-16 12:20 | Emergency (ER) | payer MEDICARE, OTHER ==
[~2022-10-16] VITALS: Ht 152.4 cm; Wt 74.1 kg
[~2022-10-16 12:20] MED LIST changes: +BUPR-113 PO; -BUPR100T6 PO; +LOSA-418 PO; -LOSA100T3 PO
[2022-10-16 12:35] VITALS: TEMP 98
[2022-10-16 14:01] LABS: BASOPHILS # (AUTO) 0.1 X10'3 (0-0.2); BASOPHILS % (AUTO) 0.9 % (0-1); EOSINOPHILS # (AUTO) 0.3 X10'3 (0-0.9); EOSINOPHILS % (AUTO) 3.2 % (0-6); LYMPHOCYTES # (AUTO) 2.3 X10'3 (1.1-4.8); LYMPHOCYTES % (AUTO) 23.7 % (21-51); MEAN CORPUSCULAR HEMOGLOBIN 28.6 PG (27.0-31.0); MEAN CORPUSCULAR HGB CONC 33.2 g/dL (33.0-36.5); MEAN CORPUSCULAR VOLUME 86.1 FL (78-98); MEAN PLATELET VOLUME 8.1 FL (7.4-10.4); MONOCYTES # (AUTO) 0.8 X10'3 (0-0.9); MONOCYTES % (AUTO) 7.8 % (2-12); NEUTROPHILS # (AUTO) 6.4 X10'3 (1.8-7.7); NEUTROPHILS % (AUTO) 64.4 % (42-75); PLATELET COUNT 255 X10'3 (140-440); RED BLOOD COUNT 4.88 X10'6 (4.20-5.60); RED CELL DISTRIBUTION WIDTH 15.4 % (11.5-14.5); WHITE BLOOD COUNT 9.9 X10'3 (4.5-11.0)
[2022-10-16 14:10] LABS: ALANINE AMINOTRANSFERASE 10 U/L (12-78); ALBUMIN 3.3 G/DL (3.4-5.0); ALBUMIN/GLOBULIN RATIO 0.8 (1.1-1.5); ALKALINE PHOSPHATASE 76 IU/L (46-116); ANION GAP 6 (8-16); ASPARTATE AMINO TRANSFERASE 14 U/L (10-37); BILIRUBIN,TOTAL 0.5 MG/DL (0.1-1.0); BLOOD UREA NITROGEN 17 MG/DL (7-18); BUN/CREATININE RATIO 16.3 (10.0-20.0); CALCIUM 9.3 MG/DL (8.5-10.1); CHLORIDE 103 MMOL/L (99-107); CREATININE 1.04 MG/DL (0.40-0.90); GLUCOSE 117 MG/DL (70-104); POTASSIUM 3.6 MMOL/L (3.5-5.1); SODIUM 137 MMOL/L (135-145); TOTAL CARBON DIOXIDE 28.5 MMOL/L (24-32); TOTAL PROTEIN 7.3 G/DL (6.4-8.2); eCRCL 33 ML/MIN; eGFR 52 ML/MIN
[2022-10-16 14:17] LABS: PRO BRAIN NATRIURETIC PEPTIDE 2699 PG/ML (0-450)
[2022-10-16] MEDS ORDERED: carVEDilol 12.5mg tablet PO ONE (15:35)
[2022-10-16] MEDS ORDERED: carVEDilol 12.5mg tablet PO SCH (15:35)
[2022-10-16] MEDS ORDERED: amLODIPine 5mg tablet PO ONE (15:35)
[2022-10-16] MEDS ORDERED: lisinopril 10 MG tablet PO ONE (15:35)
--- NOTE | 2022-10-16 16:41 | NUR ---
GAIT TEST BEING PERFORMED AT THIS TIME BY MACKENZIE TILLMAN
--- NOTE | 2022-10-16 17:20 | NUR ---
PEYTON MANN RN PT WAS ABLE TO PERFORM WITH WALKER DOING GAIT TEST WITH SAT 90% ON RA. RN WILL NOTIFY DR MCCARTHY.
[2022-10-16 17:35] VITALS: BP 160/57; PULSE 55; RESP 17; O2SAT 93
== END 2022-10-16 17:56 | disposition home or self-care (01) ==
LOC: ER 12:20
DX: I10 Essential (primary) hypertension (principal); J44.9 Chronic obstructive pulmonary disease, unspecified; E11.9 Type 2 diabetes mellitus without complications; F17.200 Nicotine dependence, unspecified, uncomplicated; Z91.041 Radiographic dye allergy status; Z88.1 Allergy status to other antibiotic agents; Z91.013 Allergy to seafood; Z79.82 Long term (current) use of aspirin; Z79.899 Other long term (current) drug therapy; Z98.51 Tubal ligation status
CPT/HCPCS: 36415; 71045; 80053; 83880; 84484; 85025; 93005; 99285

== ENCOUNTER 2022-10-26 15:05 | Day surgery (SDC) | payer MEDICARE, OTHER ==
[2022-10-26] VITALS (9 sets, daily range): BP systolic 139–176; BP diastolic 49–61; PULSE 60–72; RESP 16; TEMP 98.2; O2SAT 91–96
[~2022-10-26] VITALS: Ht 154.9 cm; Wt 76.3 kg
[~2022-10-26 15:05] MED LIST changes: +DOPamine 400mg/D5W 250ml 0 ML IV ONE; +LIDOcaine 1% (10mg/ml)w/preservative inj. 20ml MDV ONE; +atropine 0.1mg/ml 10ml syringe ONE; +heparin 1,000unit/ml 10ml vial 10 ML ONE; +iohexol 350MG/ML 100ml bottle IV ONE; +phenylephrine 10mg/ml inj. -priapism dosing ONE
[2022-10-26] MEDS ORDERED: LORazepam 0.5 MG tablet PO PRN (15:30)
[2022-10-26] MEDS ORDERED: diphenhydrAMINE 25mg capsule PO PRN (15:30)
[2022-10-26] MEDS ORDERED: normal saline 1,000 ML IV SCH (15:30)
[2022-10-26] MEDS ORDERED: iohexol 350MG/ML 100ml bottle IV ONE (16:35)
[2022-10-26] MEDS ORDERED: LISI10TA27 PO (16:41)
[2022-10-26] MEDS ORDERED: AMLO10TA13 PO (16:41)
[2022-10-26] MEDS ORDERED: CARV25TA56 PO (16:41)
[2022-10-26] MEDS ORDERED: CLOP75TA34 PO (16:41)
[2022-10-26] MEDS ORDERED: hydrocortisone sod succ/PF 100mg/2ml inj. ONE (16:44)
[2022-10-26] MEDS ORDERED: CYCL5TAB (16:44)
[2022-10-26] MEDS ORDERED: ATOR40TA72 PO (16:44)
[2022-10-26] MEDS ORDERED: diphenhydrAMINE 50 mg/ml inj ONE (16:44)
[2022-10-26] MEDS ORDERED: POTA-207 PO (16:44)
[2022-10-26] MEDS ORDERED: BUME1TAB8 PO (16:44)
[2022-10-26] MEDS ORDERED: TORS20TA41 PO (16:44)
[2022-10-26] MEDS ORDERED: NITR0.4T48 SL (16:46)
[2022-10-26] MEDS ORDERED: APIX5TAB3 PO (16:46)
[2022-10-26 16:50] LABS: PROTHROMBIN TIME 10.8 SECONDS (9.0-12.0)
[2022-10-26] MEDS ORDERED: fentaNYL/PF 50MCG/1 ML 2ML syringe ONE (17:40)
[2022-10-26] MEDS ORDERED: hydrALAZINE 20mg/ml inj. IV ONE (17:57)
[2022-10-26] MEDS ORDERED: HYDROcodone/acetaminophen 10/325mg tab PO PRN (18:20)
[2022-10-26] MEDS ORDERED: HYDROcodone/acetaminophen 5mg/325mg tablet PO PRN (18:20)
== END 2022-10-26 20:55 | disposition home or self-care (01) ==
LOC: SSTAY O 15:05
PROVIDERS: ATTEND Student in an Organized Health Care Education/Training Program
DX: I65.22 Occlusion and stenosis of left carotid artery (principal); I35.0 Nonrheumatic aortic (valve) stenosis; E11.22 Type 2 diabetes mellitus with diabetic chronic kidney disease; I12.9 Hypertensive chronic kidney disease with stage 1 through stage 4 chronic kidney disease, or unspecified chronic kidney disease; N18.9 Chronic kidney disease, unspecified; I48.0 Paroxysmal atrial fibrillation; I25.10 Atherosclerotic heart disease of native coronary artery without angina pectoris; E78.5 Hyperlipidemia, unspecified; Z79.899 Other long term (current) drug therapy; Z79.82 Long term (current) use of aspirin; Z79.01 Long term (current) use of anticoagulants; Z95.1 Presence of aortocoronary bypass graft; Z95.2 Presence of prosthetic heart valve; F17.290 Nicotine dependence, other tobacco product, uncomplicated; Z95.820 Peripheral vascular angioplasty status with implants and grafts; Z88.1 Allergy status to other antibiotic agents; Z91.041 Radiographic dye allergy status
CPT/HCPCS: 36415; 37246; 85610; 93005; C1725; C1884; J0360; J1200; J1644; J1720; J2370; J3010; J3490; J7030; Q9967; 37247; 99152; A4615; A6258; C1751; C1760; C1769; C1876; C1887; C1894; J0461; J1265

== ENCOUNTER 2022-12-22 09:59 | Inpatient (IN) | payer MEDICARE, OTHER ==
[2022-12-20 16:49] LABS: BILIRUBIN,URINE NEGATIVE (Neg); CLARITY,URINE CLEAR (Clear); COLOR,URINE YELLOW (Yellow); GLUCOSE, URINE NEGATIVE (Neg); KETONES,URINE NEGATIVE (Neg); LEUKOCYTE ESTERASE ,URINE NEGATIVE (Neg); NITRITES, URINE NEGATIVE (Neg); OCCULT BLOOD,URINE NEGATIVE (Neg); PROTEIN,URINE 100 mg/dl (Neg); UROBILINOGEN,URINE 0.2 E.U/dL (0.2-1.0)
[2022-12-20 16:53] LABS: BASOPHILS # (AUTO) 0.1 X10'3 (0-0.2); EOSINOPHILS # (AUTO) 0.4 X10'3 (0-0.9); EOSINOPHILS % (AUTO) 3.7 % (0-6); LYMPHOCYTES # (AUTO) 2.7 X10'3 (1.1-4.8); LYMPHOCYTES % (AUTO) 27.5 % (21-51); MEAN CORPUSCULAR HEMOGLOBIN 28.2 PG (27.0-31.0); MEAN CORPUSCULAR HGB CONC 32.7 g/dL (33.0-36.5); MEAN CORPUSCULAR VOLUME 86.2 FL (78-98); MEAN PLATELET VOLUME 8.5 FL (7.4-10.4); MONOCYTES # (AUTO) 0.9 X10'3 (0-0.9); MONOCYTES % (AUTO) 8.8 % (2-12); NEUTROPHILS # (AUTO) 5.8 X10'3 (1.8-7.7); PRE OP HEMATOCRIT 38.5 % (35.0-45.0); PRE OP HEMOGLOBIN 12.6 g/dL (12.0-16.0); PRE OP PLATELET COUNT 212 X10'3 (140-440); PRE OP WHITE BLOOD COUNT 9.9 10'3 (4.8-10.8); RED BLOOD COUNT 4.47 X10'6 (4.20-5.60); RED CELL DISTRIBUTION WIDTH 16.3 % (11.5-14.5)
[2022-12-20 16:56] LABS: UA COLLECTION TYPE CLN CATCH MIDSTREAM
[2022-12-20 16:56] LABS: ALBUMIN 3.4 G/DL (3.4-5.0); ALBUMIN/GLOBULIN RATIO 0.9 (1.1-1.5); ALKALINE PHOSPHATASE 87 IU/L (46-116); BLOOD UREA NITROGEN 20 MG/DL (7-18); BUN/CREATININE RATIO 15.4 (10.0-20.0); CHLORIDE 104 MMOL/L (99-107); PRE OP ALT 12 U/L (30-65); PRE OP ANION GAP 6 (8-16); PRE OP AST 12 U/L (10-37); PRE OP BILIRUB, TOTAL 0.4 MG/DL (0.0-1.0); PRE OP GLUCOSE 114 MG/DL (70-104); PRE OP POTASSIUM 3.8 MMOL/L (3.4-5.1); PRE OP SODIUM 140 MMOL/L (135-145); TOTAL CARBON DIOXIDE 29.8 MMOL/L (24-32); TOTAL PROTEIN 7.1 G/DL (6.4-8.2); eGFR 40 ML/MIN
[2022-12-20 16:59] LABS: BACTERIA,URINE NONE SEEN /HPF (Neg); RBC,URINE 0-2 /HPF (0-2); SQUAMOUS EPITHELIAL CELL,UR FEW /LPF (FEW); WBC,URINE 0-4 /HPF (0-4)
[~2022-12-22] VITALS: Ht 160 cm; Wt 77.4 kg
[2022-12-22] VITALS (14 sets, daily range): BP systolic 183–189; BP diastolic 59–78; PULSE 62–82; RESP 16–29; TEMP 97.2–98.7; O2SAT 92–96
[~2022-12-22 09:59] MED LIST changes: +AMLO10TA13 PO; -AMLO5TAB4 PO; +APIX5TAB3 PO; -ASPI81TA52 PO; +ATOR40TA72 PO; -BUPR-113 PO; +CARV25TA56 PO; -DIPH25CA83 PO; +DOCUMENT DATE & TIME OF BETA-BLOCKER PO ONE; -DOPamine 400mg/D5W 250ml 0 ML IV ONE; -HYDR25TA4 PO; +HYDROcodone/acetaminophen 10/325mg tab PO PRN; +HYDROcodone/acetaminophen 5mg/325mg tablet PO PRN; +ISOS30TA84 PO; -LIDOcaine 1% (10mg/ml)w/preservative inj. 20ml MDV ONE; +LISI10TA27 PO; -LOSA-418 PO; -METF500T PO; -METO100T14 PO; +NITR0.4T48 SL; +POTA-207 PO; -PRED20TA PO; +TORS20TA41 PO; +albuterol 2.5 MG/3 ML nebule NEB ONE; -atropine 0.1mg/ml 10ml syringe ONE; +cefazolin 2gm/D5W 100mL 100 ML IV ONE; +famotidine 20mg tablet PO ONE; -heparin 1,000unit/ml 10ml vial 10 ML ONE; -iohexol 350MG/ML 100ml bottle IV ONE; +naloxone 0.4 mg/ml inj IV PRN; +nitroPRUSSIDE (NIPRIDE) (200MCG/ML) 100ML Drip IV SCH; +ondansetron/PF 4mg/2ml inj IV PRN; -phenylephrine 10mg/ml inj. -priapism dosing ONE; +phenylephrine inj 50 MG in normal saline 250ml IV solN IV SCH; +ringers solution, lacted 1,000 ML IV SCH
[2022-12-22] MEDS ORDERED: albuterol 2.5 MG/3 ML nebule NEB ONE (10:40)
--- NOTE | 2022-12-22 13:15 | NUR ---
PT WAS SEEN BY DR HARRIS AND HE ORDERED A BNP ON PT. LABS DRAWN. THEN DR GARCIA CAME TO SEE PT AND SAID PT IS NOT GOING TO SURGERY TODAY. DR. HARRIS CONTACTED DR. MARIE FOR ADMIT ORDERS. INFORMED PT RE: PLAN AND WILL WAIT TO HEAR FOR HOSPITALIST.
[2022-12-22] MEDS ORDERED: nitroGLYCERIN 0.4mg SUBLingual tab SL PRN (14:40)
[2022-12-22] MEDS ORDERED: magnesium hydroxide 30ml (MOM) UD suspension PO PRN (15:00)
[2022-12-22] MEDS ORDERED: potassium Cl 40MEQ/1/2NS 520ml 520 ML IV PRN (15:00)
[2022-12-22] MEDS ORDERED: potassium Cl 20 mEq SR tablet PO PRN ×2 (15:00)
[2022-12-22] MEDS ORDERED: magnesium Cl slow-release 64mg tablet PO PRN (15:00)
[2022-12-22] MEDS ORDERED: acetaminophen 325mg tablet PO PRN ×2 (15:00)
[2022-12-22] MEDS ORDERED: HYDROcodone/acetaminophen 10/325mg tab PO PRN (15:00)
[2022-12-22] MEDS ORDERED: ondansetron/PF 4mg/2ml inj IV PRN (15:00)
[2022-12-22] MEDS ORDERED: magnesium 4gm in 100ml NS 100 ML IV PRN (15:00)
[2022-12-22] MEDS ORDERED: albuterol 2.5 MG/3 ML nebule NEB PRN (15:00)
[2022-12-22] MEDS ORDERED: magnesium 2GM in 50ml NS 50 ML IV PRN (15:00)
[2022-12-22] MEDS ORDERED: morphine 2 MG/ML inj. syringe IV PRN (15:00)
[2022-12-22] MEDS ORDERED: mag hydrox/Alum hydrox/simeth 30ml oral suspension PO PRN (15:00)
[2022-12-22] MEDS ORDERED: HYDROcodone/acetaminophen 5mg/325mg tablet PO PRN (15:00)
[2022-12-22] MEDS ORDERED: ondansetron 4mg rapidly disintigrating tab PO PRN (15:00)
--- NOTE | 2022-12-22 15:29 | NUR ---
PT WAITING FOR A ROOM. SON AT BEDSIDE. DR HERNÁNDEZ CAME TO SEE PT AND WROTE ORDERS. WILL ATTACH SENIOR BACKUP ADMINISTRATOR AND START IV LASIX, AND HAVE PT DO BREATHING TREATMENT. PT DOING WELL, SLIGHTLY SOB, WILL CONTINUE TO ASSESS. SPO2= 94% ON 3 LITERS NC. WILL MOVE PT TO PACU AFTER BREATHING TREATMENT.
[2022-12-22] MEDS: furosemide 40mg/4ml inj IV SCH (15:31)
[2022-12-22] MEDS: albuterol 2.5 MG/3 ML nebule NEB SCH ×3 (15:44→23:04)
[2022-12-22] MEDS: CefTRIAXone/D5W-Rocephin 1gm 50 ML IV SCH (15:45)
[2022-12-22] MEDS ORDERED: CefTRIAXone/D5W-Rocephin 1gm 50 ML IV SCH ×2 (16:00)
[2022-12-22 16:07] LABS: MAGNESIUM 2.3 MG/DL (1.5-2.4); POTASSIUM 3.8 MMOL/L (3.5-5.1)
[2022-12-22] MEDS: hydrALAZINE 20mg/ml inj. IV PRN (17:02)
--- NOTE | 2022-12-22 17:20 | NUR ---
Patient in room PAS IN 901. I have received report from Lisseth TILLMAN and had the opportunity to ask questions and assume patient care.
[2022-12-22] MEDS: azithromycin 250mg tablet PO SCH (17:57)
--- NOTE | 2022-12-22 18:37 | NUR ---
Problems reprioritized. Patient report given, questions answered & plan of care reviewed with Amanda TILLMAN.
[2022-12-22] MEDS: K and/or MAG REPLACEMENT MC SCH (20:00)
[2022-12-22] MEDS ORDERED: carVEDilol 12.5mg tablet PO SCH (20:00)
[2022-12-22] MEDS: carVEDilol 12.5mg tablet PO SCH (21:19)
[2022-12-22] MEDS: isosorbide mononitrate 30mg tab.SR.24H PO SCH (21:20)
[2022-12-22] MEDS: methylPREDNISolone sod succ 125mg/2ml vial IV SCH (21:20)
[2022-12-22] MEDS: enoxaparin 40mg/0.4ml syringe SQ SCH (21:21)
[2022-12-23] VITALS (20 sets, daily range): BP systolic 124–150; BP diastolic 46–73; PULSE 66–107; RESP 16–27; TEMP 97.6–98.5; O2SAT 88–98
[2022-12-23] MEDS: albuterol 2.5 MG/3 ML nebule NEB SCH ×6 (03:02→23:27)
--- NOTE | 2022-12-23 06:22 | NUR ---
Patient in room PCU 3012. I have received report from Amanda TILLMAN and had the opportunity to ask questions and assume patient care.
--- NOTE | 2022-12-23 06:48 | NUR ---
Problems reprioritized. Patient report given, questions answered & plan of care reviewed with Param TILLMAN. Pt stable at transfer of care
[2022-12-23 07:12] LABS: BASOPHILS % (AUTO) 0.5 % (0-1); EOSINOPHILS % (AUTO) 0 % (0-6); HEMATOCRIT 38.5 % (35.0-45.0); HEMOGLOBIN 12.9 g/dl (12.0-16.0); LYMPHOCYTES % (AUTO) 16.2 % (21-51); MEAN CORPUSCULAR HEMOGLOBIN 28.5 PG (27.0-31.0); MEAN CORPUSCULAR HGB CONC 33.5 g/dL (33.0-36.5); MEAN CORPUSCULAR VOLUME 85.1 FL (78-98); MEAN PLATELET VOLUME 8.6 FL (7.4-10.4); MONOCYTES # (AUTO) 0.1 X10'3 (0-0.9); MONOCYTES % (AUTO) 1.2 % (2-12); NEUTROPHILS % (AUTO) 82.1 % (42-75); PLATELET COUNT 212 X10'3 (140-440); RED BLOOD COUNT 4.52 X10'6 (4.20-5.60); RED CELL DISTRIBUTION WIDTH 15.8 % (11.5-14.5); WHITE BLOOD COUNT 6.1 X10'3 (4.5-11.0)
[2022-12-23 07:13] LABS: ALBUMIN 3.3 G/DL (3.4-5.0); ANION GAP 11 (8-16); BLOOD UREA NITROGEN 21 MG/DL (7-18); BUN/CREATININE RATIO 15.9 (10.0-20.0); CALCIUM 9.3 MG/DL (8.5-10.1); CHLORIDE 102 MMOL/L (99-107); CREATININE 1.32 MG/DL (0.40-0.90); GLUCOSE 183 MG/DL (70-104); MAGNESIUM 2.2 MG/DL (1.5-2.4); PHOSPHORUS 4.8 MG/DL (2.3-4.5); POTASSIUM 3.7 MMOL/L (3.5-5.1); SODIUM 138 MMOL/L (135-145); TOTAL CARBON DIOXIDE 24.7 MMOL/L (24-32); eCRCL 30 ML/MIN; eGFR 39 ML/MIN
[2022-12-23] MEDS: K and/or MAG REPLACEMENT MC SCH ×2 (08:00→20:00)
[2022-12-23] MEDS: CefTRIAXone/D5W-Rocephin 1gm 50 ML IV SCH (08:06)
[2022-12-23] MEDS: methylPREDNISolone sod succ 125mg/2ml vial IV SCH ×2 (08:07→20:47)
[2022-12-23] MEDS: furosemide 40mg/4ml inj IV SCH (08:07)
[2022-12-23] MEDS: amLODIPine 5mg tablet PO SCH (08:08)
[2022-12-23] MEDS: lisinopril 20mg tablet PO SCH (08:08)
[2022-12-23] MEDS: azithromycin 250mg tablet PO SCH (08:08)
[2022-12-23] MEDS: carVEDilol 12.5mg tablet PO SCH ×2 (08:09→20:46)
--- NOTE | 2022-12-23 18:40 | NUR ---
Problems reprioritized. Patient report given, questions answered & plan of care reviewed with Bette TILLMAN.
[2022-12-23] MEDS: isosorbide mononitrate 30mg tab.SR.24H PO SCH (20:45)
[2022-12-23] MEDS: guaiFENesin ER 600mg tablet PO SCH (20:46)
[2022-12-23] MEDS: furosemide 20 MG/2 ML vial IV SCH (20:47)
[2022-12-23] MEDS: enoxaparin 40mg/0.4ml syringe SQ SCH (20:48)
[2022-12-24] VITALS (18 sets, daily range): BP systolic 111–143; BP diastolic 38–59; PULSE 71–87; RESP 15–26; TEMP 97.5–98.7; O2SAT 91–98
[2022-12-24] MEDS: albuterol 2.5 MG/3 ML nebule NEB SCH ×5 (03:09→21:14)
--- NOTE | 2022-12-24 06:17 | NUR ---
Problems reprioritized. Patient report given, questions answered & plan of care reviewed with Param TILLMAN. Addendum: 12/24/22 at 0618 by Bette Bosch RN Amended: Links added.
--- NOTE | 2022-12-24 06:20 | NUR ---
Patient in room PCU 3012. I have received report from Bette TILLMAN and had the opportunity to ask questions and assume patient care.
[2022-12-24 07:27] LABS: BASOPHILS % (AUTO) 0.1 % (0-1); EOSINOPHILS % (AUTO) 0 % (0-6); HEMATOCRIT 35.3 % (35.0-45.0); HEMOGLOBIN 11.7 g/dl (12.0-16.0); LYMPHOCYTES # (AUTO) 1.1 X10'3 (1.1-4.8); LYMPHOCYTES % (AUTO) 9.2 % (21-51); MEAN CORPUSCULAR HGB CONC 33.1 g/dL (33.0-36.5); MEAN CORPUSCULAR VOLUME 84.6 FL (78-98); MEAN PLATELET VOLUME 8.5 FL (7.4-10.4); MONOCYTES # (AUTO) 0.2 X10'3 (0-0.9); MONOCYTES % (AUTO) 1.6 % (2-12); NEUTROPHILS % (AUTO) 89.1 % (42-75); PLATELET COUNT 228 X10'3 (140-440); RED BLOOD COUNT 4.17 X10'6 (4.20-5.60); RED CELL DISTRIBUTION WIDTH 15.9 % (11.5-14.5); WHITE BLOOD COUNT 12.4 X10'3 (4.5-11.0)
[2022-12-24 07:29] LABS: ANION GAP 11 (8-16); BLOOD UREA NITROGEN 39 MG/DL (7-18); BUN/CREATININE RATIO 25.2 (10.0-20.0); CALCIUM 8.9 MG/DL (8.5-10.1); CHLORIDE 102 MMOL/L (99-107); CREATININE 1.55 MG/DL (0.40-0.90); GLUCOSE 180 MG/DL (70-104); MAGNESIUM 2.2 MG/DL (1.5-2.4); PHOSPHORUS 5.3 MG/DL (2.3-4.5); POTASSIUM 3.5 MMOL/L (3.5-5.1); SODIUM 138 MMOL/L (135-145); eCRCL 26 ML/MIN; eGFR 33 ML/MIN
[2022-12-24] MEDS: furosemide 20 MG/2 ML vial IV SCH (07:42)
[2022-12-24] MEDS: CefTRIAXone/D5W-Rocephin 1gm 50 ML IV SCH (07:42)
[2022-12-24] MEDS: guaiFENesin ER 600mg tablet PO SCH ×2 (07:42→21:46)
[2022-12-24] MEDS: azithromycin 250mg tablet PO SCH (07:42)
[2022-12-24] MEDS: methylPREDNISolone sod succ 125mg/2ml vial IV SCH (07:42)
[2022-12-24] MEDS: amLODIPine 5mg tablet PO SCH (07:43)
[2022-12-24] MEDS: carVEDilol 12.5mg tablet PO SCH ×2 (07:43→21:45)
[2022-12-24] MEDS: lisinopril 20mg tablet PO SCH (07:43)
[2022-12-24] MEDS: K and/or MAG REPLACEMENT MC SCH ×2 (08:00→20:00)
[2022-12-24] MEDS ORDERED: HYDROcodone/acetaminophen 10/325mg tab PO PRN (15:15)
[2022-12-24] MEDS ORDERED: morphine 2 MG/ML inj. syringe IV PRN (15:15)
[2022-12-24] MEDS: normal saline 1000ml 1,000 ML IV SCH ×2 (16:41→21:46)
--- NOTE | 2022-12-24 18:15 | NUR ---
Patient in room PCU 3012. I have received report from Param TILLMAN and had the opportunity to ask questions and assume patient care.
--- NOTE | 2022-12-24 18:53 | NUR ---
Problems reprioritized. Patient report given, questions answered & plan of care reviewed with Nayeli TILLMAN.
[2022-12-24] MEDS: methylPREDNISolone sod succ/PF 40mg inj. IV SCH (21:43)
[2022-12-24] MEDS: enoxaparin 30mg/0.3ml syringe SQ SCH (21:44)
[2022-12-24] MEDS: isosorbide mononitrate 30mg tab.SR.24H PO SCH (21:45)
[2022-12-25] VITALS (21 sets, daily range): BP systolic 120–151; BP diastolic 46–71; PULSE 69–89; RESP 14–22; TEMP 97.3–98.3; O2SAT 91–100
[2022-12-25] MEDS: albuterol 2.5 MG/3 ML nebule NEB SCH ×7 (00:25→23:22)
--- NOTE | 2022-12-25 06:15 | NUR ---
Problems reprioritized. Patient report given, questions answered & plan of care reviewed with Jamila GANT.
--- NOTE | 2022-12-25 06:41 | NUR ---
I have received report from LAYNE Tyler and had the opportunity to ask questions and assume patient care. No distress at this time.
--- NOTE | 2022-12-25 06:58 | NUR ---
Placed 'Accurate I's & O's sign on door for staff.
[2022-12-25 07:02] LABS: BASOPHILS % (AUTO) 0.1 % (0-1); EOSINOPHILS % (AUTO) 0 % (0-6); HEMATOCRIT 33.5 % (35.0-45.0); LYMPHOCYTES % (AUTO) 7.9 % (21-51); MEAN CORPUSCULAR HEMOGLOBIN 27.9 PG (27.0-31.0); MEAN CORPUSCULAR HGB CONC 32.7 g/dL (33.0-36.5); MEAN CORPUSCULAR VOLUME 85.1 FL (78-98); MEAN PLATELET VOLUME 8.3 FL (7.4-10.4); MONOCYTES # (AUTO) 0.3 X10'3 (0-0.9); MONOCYTES % (AUTO) 2.1 % (2-12); NEUTROPHILS # (AUTO) 11.5 X10'3 (1.8-7.7); NEUTROPHILS % (AUTO) 89.9 % (42-75); PLATELET COUNT 213 X10'3 (140-440); RED BLOOD COUNT 3.94 X10'6 (4.20-5.60); RED CELL DISTRIBUTION WIDTH 15.8 % (11.5-14.5); WHITE BLOOD COUNT 12.8 X10'3 (4.5-11.0)
[2022-12-25 07:09] LABS: ALBUMIN 2.8 G/DL (3.4-5.0); ANION GAP 9 (8-16); BLOOD UREA NITROGEN 50 MG/DL (7-18); BUN/CREATININE RATIO 31.3 (10.0-20.0); CALCIUM 8.2 MG/DL (8.5-10.1); CHLORIDE 103 MMOL/L (99-107); GLUCOSE 176 MG/DL (70-104); MAGNESIUM 2.3 MG/DL (1.5-2.4); PHOSPHORUS 4.8 MG/DL (2.3-4.5); POTASSIUM 3.6 MMOL/L (3.5-5.1); SODIUM 137 MMOL/L (135-145); TOTAL CARBON DIOXIDE 25.1 MMOL/L (24-32); eCRCL 25 ML/MIN; eGFR 31 ML/MIN
[2022-12-25] MEDS: K and/or MAG REPLACEMENT MC SCH ×2 (08:00→20:00)
[2022-12-25] MEDS: CefTRIAXone/D5W-Rocephin 1gm 50 ML IV SCH (08:04)
[2022-12-25] MEDS: methylPREDNISolone sod succ/PF 40mg inj. IV SCH ×2 (08:04→20:43)
[2022-12-25] MEDS: lisinopril 20mg tablet PO SCH (08:34)
[2022-12-25] MEDS: carVEDilol 12.5mg tablet PO SCH ×2 (08:34→20:43)
[2022-12-25] MEDS: guaiFENesin ER 600mg tablet PO SCH ×2 (08:35→20:43)
[2022-12-25] MEDS: amLODIPine 5mg tablet PO SCH (08:35)
[2022-12-25] MEDS: normal saline 1000ml 1,000 ML IV SCH ×2 (08:41→20:41)
[2022-12-25] MEDS ORDERED: nitroPRUSSIDE (NIPRIDE) (200MCG/ML) 100ML Drip IV ONE (11:50)
--- NOTE | 2022-12-25 15:29 | NUR ---
FINGERPRINTER documentation: I have reviewed and agree with all interventions, assessments performed and documented by STALIN Marino.
--- NOTE | 2022-12-25 18:15 | NUR ---
Patient in room PCU 3012. I have received report from Jamila GANT and had the opportunity to ask questions and assume patient care.
--- NOTE | 2022-12-25 18:16 | NUR ---
Problems reprioritized. Patient report given, questions answered & plan of care reviewed with LAYNE Tyler No distress at this time.
[2022-12-25] MEDS: enoxaparin 30mg/0.3ml syringe SQ SCH (20:42)
[2022-12-25] MEDS: isosorbide mononitrate 30mg tab.SR.24H PO SCH (20:44)
[2022-12-26] VITALS (33 sets, daily range): BP systolic 118–174; BP diastolic 45–75; PULSE 65–98; RESP 14–21; TEMP 97.5–98; O2SAT 91–98
[2022-12-26] MEDS: albuterol 2.5 MG/3 ML nebule NEB SCH ×6 (03:32→23:03)
[2022-12-26] MEDS ORDERED: nitroPRUSSIDE (NIPRIDE) (200MCG/ML) 100ML Drip IV ONE (05:00)
[2022-12-26] MEDS ORDERED: phenylephrine inj 50 MG in normal saline 250ml IV solN IV ONE (05:30)
[2022-12-26 06:11] LABS: BASOPHILS % (AUTO) 0.1 % (0-1); EOSINOPHILS % (AUTO) 0 % (0-6); HEMATOCRIT 35.3 % (35.0-45.0); HEMOGLOBIN 11.5 g/dl (12.0-16.0); LYMPHOCYTES # (AUTO) 0.9 X10'3 (1.1-4.8); LYMPHOCYTES % (AUTO) 8.5 % (21-51); MEAN CORPUSCULAR HEMOGLOBIN 28.2 PG (27.0-31.0); MEAN CORPUSCULAR HGB CONC 32.7 g/dL (33.0-36.5); MEAN CORPUSCULAR VOLUME 86.1 FL (78-98); MEAN PLATELET VOLUME 8.3 FL (7.4-10.4); MONOCYTES # (AUTO) 0.4 X10'3 (0-0.9); MONOCYTES % (AUTO) 3.6 % (2-12); NEUTROPHILS # (AUTO) 9.7 X10'3 (1.8-7.7); NEUTROPHILS % (AUTO) 87.8 % (42-75); PLATELET COUNT 229 X10'3 (140-440); RED BLOOD COUNT 4.09 X10'6 (4.20-5.60); RED CELL DISTRIBUTION WIDTH 15.9 % (11.5-14.5); WHITE BLOOD COUNT 11.1 X10'3 (4.5-11.0)
--- NOTE | 2022-12-26 06:15 | NUR ---
Problems reprioritized. Patient report given, questions answered & plan of care reviewed with Jerome RN.
[2022-12-26 06:40] LABS: ANION GAP 9 (8-16); BLOOD UREA NITROGEN 42 MG/DL (7-18); BUN/CREATININE RATIO 30.4 (10.0-20.0); CALCIUM 8.3 MG/DL (8.5-10.1); CHLORIDE 106 MMOL/L (99-107); CREATININE 1.38 MG/DL (0.40-0.90); GLUCOSE 189 MG/DL (70-104); MAGNESIUM 2.5 MG/DL (1.5-2.4); PHOSPHORUS 4.4 MG/DL (2.3-4.5); SODIUM 139 MMOL/L (135-145); TOTAL CARBON DIOXIDE 23.6 MMOL/L (24-32); eCRCL 29 ML/MIN; eGFR 37 ML/MIN
--- NOTE | 2022-12-26 06:43 | NUR ---
Patient in room PCU 3012. I have received report from Nayeli TILLMAN and had the opportunity to ask questions and assume patient care.
[2022-12-26] MEDS ORDERED: protamine sulfate 10mg/ml inj. ONE (07:32)
[2022-12-26] MEDS ORDERED: LIDOcaine 1% 30ml preserv. free vial ONE (07:33)
[2022-12-26] MEDS: amLODIPine 5mg tablet PO SCH (08:00)
[2022-12-26] MEDS: lisinopril 20mg tablet PO SCH (08:00)
[2022-12-26] MEDS: K and/or MAG REPLACEMENT MC SCH ×2 (08:00→20:00)
[2022-12-26] MEDS: carVEDilol 12.5mg tablet PO SCH ×2 (08:00→20:04)
[2022-12-26] MEDS: methylPREDNISolone sod succ/PF 40mg inj. IV SCH ×3 (08:00→20:03)
[2022-12-26] MEDS: CefTRIAXone/D5W-Rocephin 1gm 50 ML IV SCH (08:00)
[2022-12-26] MEDS: guaiFENesin ER 600mg tablet PO SCH ×2 (08:00→20:04)
[2022-12-26] MEDS ORDERED: sevoflurane 250ml liquid IH ONE (08:21)
[2022-12-26] MEDS ORDERED: midazolam 1 mg/ML 2ml injection ONE (08:27)
[2022-12-26] MEDS ORDERED: fentaNYL/PF 50MCG/1 ML 2ML syringe ONE (08:27)
[2022-12-26] MEDS ORDERED: rocuronium 10mg/ml inj IV ONE (08:31)
[2022-12-26] MEDS ORDERED: propofol inj 20 ML IV ONE (09:12)
[2022-12-26] MEDS ORDERED: dexamethasone sod phosphate 4mg/ml inj. ONE (09:16)
[2022-12-26] MEDS ORDERED: heparin 1,000unit/ml 10ml vial 10 ML ONE (09:36)
[2022-12-26] MEDS ORDERED: labetalol 20mg/4ml (5mg/ml) syringe IV ONE (10:28)
[2022-12-26] MEDS ORDERED: ondansetron/PF 4mg/2ml inj ONE (10:41)
[2022-12-26] MEDS ORDERED: sugammadex 200mg/2ml injection IV ONE (10:41)
--- NOTE | 2022-12-26 11:12 | NUR ---
Received from OR via HOSPITAL BED TO RR 4, accompanied by Anesthesiologist DR MARTIN and report given by Anesthesiolgist. PT PRESENTS WITH PIV 20G RIGHT FOREARM, ART LINE LEFT WRIST, LEFT NECK STRI STRIPS WITH 4X4 AND PAPER TAPE WITH 15F DRAIN WITH 5MLS OPUTPUT. FORMAN CATH WITH 50MLS OUTPUT. SPO2 97% MASK 6L, NEURO CHECK INTACT, PEDAL PULSES PALPABLE, VSS. Addendum: 12/26/22 at 1131 by Lisseth Alonso RN, RN Amended: Links added.
[2022-12-26] MEDS ORDERED: ringers solution, lacted 1,000 ML IV SCH (11:20)
[2022-12-26] MEDS ORDERED: meperidine/PF 25mg/ml syringe IV PRN ×3 (11:20)
[2022-12-26] MEDS ORDERED: ondansetron/PF 4mg/2ml inj IV PRN (11:20)
[2022-12-26] MEDS ORDERED: morphine 2 MG/ML inj. syringe IV PRN (11:20)
[2022-12-26] MEDS ORDERED: morphine 4 MG/ML inj SYRINge IV PRN (11:20)
[2022-12-26] MEDS ORDERED: proCHLORperazine 10 MG/2 ml inj IV PRN (11:20)
--- NOTE | 2022-12-26 12:22 | NUR ---
Report called to receiving nurse AUREA TILLMAN. Transferred via [facility] BED TO [facility] 2038 ON MONITOR. PT TRANSFERED FROM A HOSPITAL BED TO [facility] BED. ALL LINES SECURE DURING TRANSFER. [facility] NURSES AND TECH HOOKED PT UP TO VITALS MACHINE. Belongings WERE IN PT ROOM ON U. FAMILY IN WAITING ROOM NOTIFIED OF TRANSFER. Special Issues communicated to receiving nurse. Addendum: 12/26/22 at 1243 by Lisseth Alonso RN, RN Amended: Links added.
--- NOTE | 2022-12-26 12:30 | NUR ---
Patient in room ICU 2038. I have received report from Lisseth TILLMAN and had the opportunity to ask questions and assume patient care.
--- NOTE | 2022-12-26 13:49 | NUR ---
0800 meds not given by previous nurse providing care
[2022-12-26] MEDS: normal saline 1000ml 1,000 ML IV SCH (16:06)
[2022-12-26] MEDS: isosorbide mononitrate 30mg tab.SR.24H PO SCH (20:03)
[2022-12-26] MEDS: HYDROcodone/acetaminophen 5mg/325mg tablet PO PRN (20:04)
[2022-12-26] MEDS: enoxaparin 30mg/0.3ml syringe SQ SCH (20:06)
[2022-12-27] VITALS (36 sets, daily range): BP systolic 119–190; BP diastolic 42–74; PULSE 72–99; RESP 11–25; O2SAT 92–96
--- NOTE | 2022-12-27 02:30 | NUR ---
Nipride drip infused at this time. BPS 152/57. Within 5 min of stopping drip BPs 177-182. Will medicate with appresoline as ordered
[2022-12-27] MEDS: hydrALAZINE 20mg/ml inj. IV PRN (02:37)
[2022-12-27 03:23] LABS: BASOPHILS % (AUTO) 0.1 % (0-1); EOSINOPHILS % (AUTO) 0 % (0-6); HEMATOCRIT 32.2 % (35.0-45.0); HEMOGLOBIN 10.5 g/dl (12.0-16.0); LYMPHOCYTES # (AUTO) 0.7 X10'3 (1.1-4.8); LYMPHOCYTES % (AUTO) 6.8 % (21-51); MEAN CORPUSCULAR HEMOGLOBIN 28.5 PG (27.0-31.0); MEAN CORPUSCULAR HGB CONC 32.6 g/dL (33.0-36.5); MEAN CORPUSCULAR VOLUME 87.6 FL (78-98); MEAN PLATELET VOLUME 8.3 FL (7.4-10.4); MONOCYTES # (AUTO) 0.4 X10'3 (0-0.9); MONOCYTES % (AUTO) 4.2 % (2-12); NEUTROPHILS # (AUTO) 9.5 X10'3 (1.8-7.7); NEUTROPHILS % (AUTO) 88.9 % (42-75); PLATELET COUNT 232 X10'3 (140-440); RED BLOOD COUNT 3.67 X10'6 (4.20-5.60); RED CELL DISTRIBUTION WIDTH 16.2 % (11.5-14.5); WHITE BLOOD COUNT 10.7 X10'3 (4.5-11.0)
[2022-12-27 03:31] LABS: ALBUMIN 2.8 G/DL (3.4-5.0); ANION GAP 5 (8-16); BLOOD UREA NITROGEN 36 MG/DL (7-18); CHLORIDE 110 MMOL/L (99-107); CREATININE 1.24 MG/DL (0.40-0.90); GLUCOSE 197 MG/DL (70-104); MAGNESIUM 2.4 MG/DL (1.5-2.4); PHOSPHORUS 4.6 MG/DL (2.3-4.5); POTASSIUM 4.3 MMOL/L (3.5-5.1); SODIUM 140 MMOL/L (135-145); TOTAL CARBON DIOXIDE 25.4 MMOL/L (24-32); eCRCL 32 ML/MIN; eGFR 42 ML/MIN
[2022-12-27] MEDS: albuterol 2.5 MG/3 ML nebule NEB SCH ×6 (03:45→23:03)
[2022-12-27] MEDS: HYDROcodone/acetaminophen 5mg/325mg tablet PO PRN (05:19)
--- NOTE | 2022-12-27 06:27 | NUR ---
Patient in room ICU 2038. I have received report from Dolly TILLMAN and had the opportunity to ask questions and assume patient care.
[2022-12-27] MEDS: K and/or MAG REPLACEMENT MC SCH ×2 (08:00→20:00)
[2022-12-27] MEDS: guaiFENesin ER 600mg tablet PO SCH ×2 (08:20→20:32)
[2022-12-27] MEDS: amLODIPine 5mg tablet PO SCH (08:21)
[2022-12-27] MEDS: lisinopril 20mg tablet PO SCH (08:21)
[2022-12-27] MEDS: carVEDilol 12.5mg tablet PO SCH ×2 (08:21→20:32)
[2022-12-27] MEDS: CefTRIAXone/D5W-Rocephin 1gm 50 ML IV SCH (08:22)
[2022-12-27] MEDS: methylPREDNISolone sod succ/PF 40mg inj. IV SCH ×2 (08:22→20:33)
--- NOTE | 2022-12-27 11:13 | NUR ---
Initial: Pt s/p endarterectomy carotid artery surgery on 12/26 per EMR. Pt continues on a heart healthy with average PO intake of 52% x 11 meals which met ~76% of estimated kcal needs and ~77% of estimated protein needs. Unable to obtain food preferences at this time due to pt busy with RN during attempt visit. Noted 2 BM on 12/25 per EMR with available PRN bowel care. Will continue to monitor and make recommendations as appropriate. Recommendations: 1.continue heart healthy diet 2.monitor need for ONS/obtain food preferences as able 3.routine/PRN bowel care 4.weekly scaled wts Addendum: 12/27/22 at [address] Amended: Links added.
--- NOTE | 2022-12-27 14:54 | NUR ---
Warren catheter removed, pt tolerating well.
[2022-12-27] MEDS: lisinopril 10 MG tablet PO SCH ×2 (16:22→20:32)
--- NOTE | 2022-12-27 18:23 | NUR ---
Problems reprioritized. Patient report given, questions answered & plan of care reviewed with Dolly TILLMAN.
--- NOTE | 2022-12-27 20:30 | NUR ---
MARIANA drain, Lt neck, DC'd at this time. Direct pressure x5min, then DSD applied. Júnior procedure well.
[2022-12-27] MEDS: isosorbide mononitrate 30mg tab.SR.24H PO SCH (20:32)
[2022-12-27] MEDS: enoxaparin 30mg/0.3ml syringe SQ SCH (20:33)
[2022-12-28] VITALS (23 sets, daily range): BP systolic 135–177; BP diastolic 51–66; PULSE 64–97; RESP 14–20; O2SAT 92–98
[2022-12-28] MEDS: HYDROcodone/acetaminophen 5mg/325mg tablet PO PRN (01:18)
[2022-12-28] MEDS: albuterol 2.5 MG/3 ML nebule NEB SCH ×6 (03:58→23:26)
--- NOTE | 2022-12-28 07:08 | NUR ---
Patient in room ICU 2038. I have received report from Dolly TILLMAN and had the opportunity to ask questions and assume patient care.
[2022-12-28] MEDS ORDERED: HYDROchlorothiazide 12.5mg capsule PO SCH (08:00)
[2022-12-28] MEDS: lisinopril 10 MG tablet PO SCH ×2 (08:00→20:03)
[2022-12-28] MEDS: carVEDilol 12.5mg tablet PO SCH ×2 (08:00→20:04)
[2022-12-28] MEDS: methylPREDNISolone sod succ/PF 40mg inj. IV SCH (08:00)
[2022-12-28] MEDS: guaiFENesin ER 600mg tablet PO SCH ×2 (08:00→20:03)
[2022-12-28] MEDS: CefTRIAXone/D5W-Rocephin 1gm 50 ML IV SCH (08:00)
[2022-12-28] MEDS: amLODIPine 5mg tablet PO SCH (08:00)
[2022-12-28] MEDS: K and/or MAG REPLACEMENT MC SCH ×2 (08:00→20:00)
[2022-12-28 08:40] LABS: BASOPHILS % (AUTO) 0.2 % (0-1); EOSINOPHILS % (AUTO) 0 % (0-6); HEMATOCRIT 36.4 % (35.0-45.0); HEMOGLOBIN 11.7 g/dl (12.0-16.0); LYMPHOCYTES # (AUTO) 1.3 X10'3 (1.1-4.8); LYMPHOCYTES % (AUTO) 11.7 % (21-51); MEAN CORPUSCULAR HEMOGLOBIN 27.9 PG (27.0-31.0); MEAN CORPUSCULAR HGB CONC 32.1 g/dL (33.0-36.5); MEAN CORPUSCULAR VOLUME 86.7 FL (78-98); MEAN PLATELET VOLUME 8.1 FL (7.4-10.4); MONOCYTES # (AUTO) 0.7 X10'3 (0-0.9); MONOCYTES % (AUTO) 6.3 % (2-12); NEUTROPHILS # (AUTO) 9.2 X10'3 (1.8-7.7); NEUTROPHILS % (AUTO) 81.8 % (42-75); PLATELET COUNT 262 X10'3 (140-440); RED CELL DISTRIBUTION WIDTH 16.1 % (11.5-14.5); WHITE BLOOD COUNT 11.3 X10'3 (4.5-11.0)
[2022-12-28 09:37] LABS: ALBUMIN 3.1 G/DL (3.4-5.0); ANION GAP 8 (8-16); BLOOD UREA NITROGEN 35 MG/DL (7-18); BUN/CREATININE RATIO 28.2 (10.0-20.0); CALCIUM 8.4 MG/DL (8.5-10.1); CHLORIDE 108 MMOL/L (99-107); CREATININE 1.24 MG/DL (0.40-0.90); GLUCOSE 201 MG/DL (70-104); POTASSIUM 4.5 MMOL/L (3.5-5.1); SODIUM 140 MMOL/L (135-145); TOTAL CARBON DIOXIDE 24.1 MMOL/L (24-32); eCRCL 32 ML/MIN; eGFR 42 ML/MIN
--- NOTE | 2022-12-28 18:25 | NUR ---
Patient in room ICU 2038. I have received report from Amanda TILLMAN and had the opportunity to ask questions and assume patient care.
[2022-12-28] MEDS: apixaban 5mg tablet PO SCH (20:03)
[2022-12-28] MEDS: isosorbide mononitrate 30mg tab.SR.24H PO SCH (21:20)
[2022-12-29] VITALS (12 sets, daily range): BP systolic 131–152; BP diastolic 57–80; PULSE 72–89; RESP 15–19; O2SAT 93–98
[2022-12-29] MEDS: albuterol 2.5 MG/3 ML nebule NEB SCH ×4 (03:28→15:04)
--- NOTE | 2022-12-29 06:29 | NUR ---
Problems reprioritized. Patient report given, questions answered & plan of care reviewed with Maura TILLMAN.
--- NOTE | 2022-12-29 06:35 | NUR ---
Assumed care of pt after report from Barbara TILLMAN.
[2022-12-29] MEDS: K and/or MAG REPLACEMENT MC SCH (06:47)
[2022-12-29] MEDS ORDERED: HYDROchlorothiazide 25mg tablet PO SCH (08:00)
[2022-12-29] MEDS: lisinopril 10 MG tablet PO SCH (08:27)
[2022-12-29] MEDS: guaiFENesin ER 600mg tablet PO SCH (08:27)
[2022-12-29] MEDS: carVEDilol 12.5mg tablet PO SCH (08:28)
[2022-12-29] MEDS ORDERED: HYDR25TA4 PO (09:55)
[2022-12-29] MEDS ORDERED: ASPI81TA52 PO (09:55)
[2022-12-29] MEDS ORDERED: ADV50250 IH (09:57)
[2022-12-29] MEDS ORDERED: ALBU2.5V7 NEB (09:57)
[2022-12-29] MEDS ORDERED: ATR0.5NEB NEB (10:01)
--- NOTE | 2022-12-29 10:30 | NUR ---
Pt's granddaughter visited this morning, after speaking w/ Oralia TILLMAN, CSM, on the phone and in person. After seeing how well the pt moved w/o getting very SOB, Marlene, agreed to take her grandmother home. Waiting for O2 so pt can go home. Pt was given a walker to use.
[2022-12-29] MEDS: amLODIPine 5mg tablet PO SCH (11:07)
[2022-12-29] MEDS: apixaban 5mg tablet PO SCH (11:07)
--- NOTE | 2022-12-29 12:45 | NUR ---
O2 rep is here educating pt about the O2 tank.
--- NOTE | 2022-12-29 16:15 | NUR ---
DC instructions reviewed w/ pt and her granddaughter w/ understanding. Questions answered. Pt had all belongings, plus O2 tank, nebulizer, and walker. Pt to lobby via WC w/ RN.
== END 2022-12-29 16:10 | disposition home or self-care (01) | DRG 37 ==
LOC: PAS IN 10:17 → UNDOADMIN 10:17 → PAS IN 14:39 → PCU 3S 17:24 → SUR 3N 12-24 12:25 → PCU 3S 12-24 12:26 → PACU 12-26 10:08 → ICU 2S 12-26 12:22
PROVIDERS: ADMIT Surgery; ATTEND Surgery
PROC: 03CL0ZZ Extirpation of Matter from Left Internal Carotid Artery, Open Approach (ICD-10-PCS; 2022-12-26)
PROC: 03UL0KZ Supplement Left Internal Carotid Artery with Nonautologous Tissue Substitute, Open Approach (ICD-10-PCS; 2022-12-26)
PROC: 03CN0ZZ Extirpation of Matter from Left External Carotid Artery, Open Approach (ICD-10-PCS; principal; 2022-12-26 08:21)
DX: I65.22 Occlusion and stenosis of left carotid artery (principal); I50.33 Acute on chronic diastolic (congestive) heart failure; J96.21 Acute and chronic respiratory failure with hypoxia; N17.0 Acute kidney failure with tubular necrosis; J44.1 Chronic obstructive pulmonary disease with (acute) exacerbation; I48.21 Permanent atrial fibrillation; I11.0 Hypertensive heart disease with heart failure; F17.210 Nicotine dependence, cigarettes, uncomplicated; E78.5 Hyperlipidemia, unspecified; Z20.822 Contact with and (suspected) exposure to COVID-19; E11.51 Type 2 diabetes mellitus with diabetic peripheral angiopathy without gangrene; D72.829 Elevated white blood cell count, unspecified; I25.10 Atherosclerotic heart disease of native coronary artery without angina pectoris; Z95.1 Presence of aortocoronary bypass graft; Z91.041 Radiographic dye allergy status; Z91.013 Allergy to seafood; Z79.01 Long term (current) use of anticoagulants; Z79.899 Other long term (current) drug therapy; Z90.49 Acquired absence of other specified parts of digestive tract; Z99.81 Dependence on supplemental oxygen; Z86.16 Personal history of COVID-19; Z95.2 Presence of prosthetic heart valve; I25.2 Old myocardial infarction; Z98.51 Tubal ligation status
CPT/HCPCS: 36415; 71045; 80048; 80053; 81001; 82948; 83036; 83735; 83880; 84100; 84132; 85025; 86885; 86900; 86901; 86920; 87081; 87502; 87503; 87811; 93005; 93306; 94640; 94760; 95813; 95816; A4314; A4615; A4618; A6213; A6258; A6449; A7000; G0378; J0360; J0690; J0696; J1100; J1644; J1650; J1940; J2175; J2250; J2310; J2370; J2405; J2704; J2720; J2920; J2930; J3010; J3490; J7030; J7040; J7050; J7120